=== PATIENT | male | born 1935 | race Caucasian/White ===

== ENCOUNTER 2019-08-12 17:53 | Inpatient (IN) ==
--- NOTE | 2019-08-12 18:42 | PROVIDER DOCUMENTATION ---
This chart was entered by Krysta Meadows Scribe, acting as scribe for Kevin Butts MD. HPI-Respiratory General - General Source: patient, family - History of Present Illness-Resp Quality of Pain: reports: tightness Severity in ED: reports: mild Onset/Duration: reports: 24 hours ago Timing: reports: gone now Cough Quality/Degree: reports: no cough Episode Frequency: no prior episodes Current Respiratory Medication Therapy: Initiated none Modifying Factors: improves with: exertion (worsens), lying down (worsens), oxygen (resolved chest pain, improved shortness of breath) Associated Symptoms: reports: chest pain/soreness, shortness of breath. denies: cough, fever/chills, nasal congestion, wheezing Similar Symptoms Previously?: Yes Recently seen or treated by another doctor?: Yes <Kevin Butts - Last Filed: 08/12/19 18:59> <Srinivasa Witt - Last Filed: 08/12/19 20:28> - General Chief Complaint: Shortness of Breath Stated Complaint: SOB, LOW OXYGEN LEVELS Time Seen by Provider: 08/12/19 18:14 Allergies/Adverse Reactions: Patient Allergies Allergy/AdvReac Type Severity Reaction Status Date / Time No Known Allergies Allergy Verified 02/08/18 15:42 Home Medications: Home Medication List Medication Instructions Recorded Confirmed Last Taken Type Alprazolam [Xanax] 0.25 mg PO BID 03/13/12 02/08/18 02/07/18 21:00 History 0.25 mg Gabapentin [Neurontin] 300 mg PO BID 03/13/12 02/08/18 02/07/18 21:00 History 300 mg Isosorbide Mononitrate E.r. [Imdur] 60 mg PO DAILY 03/13/12 02/08/18 02/07/18 08:00 History 60 mg Levothyroxine [Synthroid] 75 microgm PO DAILY 03/13/12 02/08/18 02/07/18 08:00 History 75 mcg ROSUVAstatin [Crestor] 10 mg PO HS 03/13/12 02/08/18 02/07/18 08:00 History 10 mg Insulin Lispro [Humalog Kwikpen 0 unit SQ AC + HS PRN PRN 01/19/16 12/30/17 05/06/17 07:00 History U-100] Glipizide E.r. [Glucotrol Xl] 5 mg PO BID 07/08/16 02/08/18 02/07/18 08:00 History 5 mg Pantoprazole [Protonix] 40 mg PO DAILY@0700 07/08/16 02/08/18 02/07/18 08:00 History 40 mg Insulin Glargine [Lantus] 15 units SQ HS 05/06/17 02/08/18 02/07/18 20:00 History 15 unts Oxycodone HCl/Acetaminophen 1 tab PO BID PRN 05/06/17 02/08/18 02/07/18 21:00 History [Percocet 10-325 mg Tablet] 1 Rivaroxaban [Xarelto] 15 mg PO DAILY 05/06/17 02/08/18 02/07/18 08:00 History 15 mg Aspirin [Ecotrin] 81 mg PO DAILY 12/30/17 02/08/18 02/07/18 08:00 History 81mg Furosemide [Lasix] 20 mg PO EVERY OTHER DAY 12/30/17 02/08/18 02/07/18 08:00 History 20 mg Metoprolol Succinate E.r. [Toprol 100 mg PO DAILY 12/30/17 02/08/18 02/07/18 08:00 History Xl] 100 mg Nitroglycerin [Nitroglycerin 1 spray SL Q5M PRN PRN 12/30/17 02/08/18 Unknown History Lingual [place]] Primidone [Mysoline] 50 mg PO DAILY 12/30/17 02/08/18 02/07/18 08:00 History 50 mg Ranitidine HCl [Zantac] 150 mg PO DAILY 12/30/17 02/08/18 02/07/18 08:00 History 150 mg Brimonidine/Timolol Ophth Soln 1 drop OPH BID 02/08/18 02/08/18 02/07/18 21:00 History [Combigan Ophth Soln] Insulin Glargine [Lantus] 25 unit SUBQ QAM 02/08/18 02/08/18 02/07/18 08:00 History 25 units Ketorolac 0.4% Ophth Soln [Acular 1 drop OP Q6H PRN 02/08/18 02/08/18 Unknown History Ls 0.4% Ophth Soln] Latanoprost 1 drop OP QHS 02/08/18 02/08/18 02/07/18 21:00 History 1 Amoxicillin/Pot Clavulanate 875 mg PO BID #10 tab 02/10/18 Unknown Rx [Augmentin] LISINOpril [Prinivil] 5 mg PO DAILY #60 tab 02/10/18 Unknown Rx Linezolid [Zyvox] 600 mg PO Q12HR #10 tab 02/10/18 Unknown Rx Polyethylene Glycol 3350 [Miralax] 17 gm PO DAILY PRN #30 powd.pack 02/10/18 Unknown Rx Ubidecarenone [Coenzyme Q10] 200 mg PO DAILY capsule 02/10/18 Unknown Rx Amiodarone [Cordarone] 200 mg PO BID 08/12/19 08/12/19 08/12/19 17:00 History Clopidogrel [Plavix] 75 mg PO DAILY 08/12/19 08/12/19 08/12/19 17:00 History - History of Present Illness-Resp Nature of Presenting Problem: pt is a 84 yr old male presenting with 1 day complaint of shortness of breath and left chest pain, pain does not radiate, pain relieved with o2. pt admits he was admitted to 08/07/19 for CHF, pt had heart cath, angioplasty and stents replaced. pt reports he was feeling well until after returning home yesterday, pt admits he was discharged home without oxygen, oxygen applied on arrival here. pt denies any other complaints. pt is followed by Dr Oliver (Kevin Butts) Review of Systems - Adult - REVIEW OF SYSTEMS - ADULT Constitutional: denies: fever Eyes: reports: no symptoms reported Ears, Nose, Mouth & Throat: denies: ear pain, sinus problem, throat pain Cardiovascular: reports: chest pain, orthopnea. denies: palpitations, syncope Respiratory: reports: dyspnea on exertion, shortness of breath. denies: cough Gastrointestinal: denies: abdominal pain, diarrhea, nausea, vomiting Genitourinary: reports: no symptoms reported Musculoskeletal: reports: no symptoms reported Integumentary: reports: no symptoms reported Neurological: denies: dizziness/vertigo, headache/migraines, syncope Psychiatric: reports: no symptoms reported Endocrine: reports: no symptoms reported Hematologic/Lymphatic: reports: no symptoms reported Allergic/Immunologic: reports: no symptoms reported All Other Systems: Reviewed and Negative <Kevin Butts - Last Filed: 08/12/19 18:59> Past History - Adult - PAST MEDICAL HISTORY-ADULT Review of Records: reports: Old Records Reviewed, Nursing Assessment Review, Medications Reviewed, Social history reviewed & non-contributory. Major Childhood Illnesses: reports: denies history Cardiovascular: reports: HTN, [place] Respiratory: reports: denies history Gastrointestinal: reports: denies history Obstetrical/Gynecological: reports: denies history Genitourinary: reports: kidney disease, prostate cancer Musculoskeletal: reports: denies history Neurological: reports: denies history Endocrine/Immune: reports: Diabetes, thyroid disorder Other Conditions: reports: denies history - PRIOR SURGERIES/PROCEDURES Surgical/Procedure History: reports: cardiac stent, other (stomach surgery) - IMMUNIZATION STATUS Childhood Immunizations: See Nurse Assessment Flu Vaccine: See Nurse Assessment - FAMILY HISTORY Family History: reviewed, not pertinent - SOCIAL HISTORY Smoking: denies Substance Use: denies Living Situation: family <Kevin Butts - Last Filed: 08/12/19 18:59> Physical Exam-General - PHYSICAL EXAM-ADULT Initial Vital Signs Reviewed: Yes - CONSTITUTIONAL General Appearance: alert, no apparent distress - EYES Eyes: PERRL/EOMI - HEAD, EARS, NOSE, MOUTH & THROAT HENMT: normocephalic/atraumatic, moist mucous membranes - NECK Neck: non-tender, full range of motion, supple, normal inspection - RESPIRATORY Respiratory: chest non-tender, lungs clear, normal breath sounds, no respiratory distress, no accessory muscle use - CARDIOVASCULAR Cardiovascular: normal peripheral pulses, regular rate, rhythm, no edema - GASTROINTESTINAL (ABDOMEN) Abdominal Exam: normal bowel sounds, non tender, soft - LYMPHATIC Lymphatic: no adenopathy - MUSCULOSKELETAL Back Exam: normal inspection, no CVA tenderness, no vertebral tenderness Extremity: normal range of motion, non-tender, normal gait, normal inspection - SKIN Integumentary: normal color, normal turgor, warm/dry - NEUROLOGIC Neurologic: grossly normal, no motor/sensory deficits - PSYCHIATRIC Psych/Mental Status: normal mood/affect, normal thought content, normal thought process, oriented x 3 <Kevin Butts - Last Filed: 08/12/19 18:59> - HEART Score HEART Score: History: Slightly Suspicious HEART Score: ECG: Non-Specific Repolarization Disturbance/LBBB/PM HEART Score: Age: > or = 65 Years HEART Score: Risk Factors for Atherosclerotic Disease: > or = 3 Risk Factors or History of Atherosclerotic Disease HEART Score: Troponin: 1-3x Normal Limit Total HEART Score:: 6 <Srinivasa Witt - Last Filed: 08/12/19 20:28> Progress - PLAN OF CARE/RESULTS Result Diagrams: 08/12/19 18:53 - EKG 1 Time of EKG reading by physician:: 17:57 EKG Read and Signed by:: Kevin Butts EKG Interpretation (*Must complete 3 of following elements*): Abnormal (st and t wave abnormality, consider lateral ischemia) Rate: 88 Rhythm: sinus with 1st degree av block [place]: normal [place] Interval: prolonged - CHANGE OF SHIFT REPORT (ED Provider) 1 Report Given and Care Transferred to:: [facility] Time of Transfer: 19:00 Items Pending: Labs, XRAY Results, Physician Consult/Arrival <Kevin Butts - Last Filed: 08/12/19 18:59> - PLAN OF CARE/RESULTS Result Diagrams: 08/12/19 18:53 08/12/19 18:53 - REASSESSMENT Reassessment #1 Time Reassessed: 20:02 Status: unchanged (Seen and examined by me. Case discussed with Dr. Butts at shift change. Cardiac enzymes are elevated a bit. Will call back [facility] at to disposition patient. In addition, will be certain to give ASA, NTP, IV lasix.) - XRAY 1 XRAY Study: Chest Impression: Abnormal, See EMR Report ( CHEST-1 VIEW - 08/12/2019 INDICATION: cp/ sob COMPARISON: 10/05/2018 FINDINGS: Lung volumes are critically low. There is some nonspecific, diffuse infiltrate or edema. There is an aortic valve replacement. Heart size is borderline. IMPRESSION: Critically low lung volumes. Indeterminate bilateral infiltrates or pulmonary edema. Electronically signed by Javi Gómez 08/12/2019 7:10 PM [id number] Interpreting Physician: Javi Gómez MD Dictated Date/Time: 08/12/19 190 cc: Kevin Butts MD; Ramses Hernandez MD) - CONSULTS/PCP/HOSPITALIST Notification #1 *Consult/PCP/Hospitalist*: [facility] Time Discussed: 20:04 Reason/Comments: no beds, keep here and transfer out if needed #2 Consult: Hospitalist paged at 2004 Time Discussed: 20:15 (Dr. De Souza) Consult Disposition: Will see in ED, Admit <MiryamSrinivasaClive - Last Filed: 08/12/19 20:28> - PLAN OF CARE/RESULTS Progress/Plan/Lab Results: Vital Signs - 8 hr 08/12/19 17:55 Temperature 98.9 F Pulse Rate 84 Respiratory Rate 22 Blood Pressure 145/72 O2 Sat by Pulse Oximetry 92 L Laboratory Results - last 24 hr 08/12/19 08/12/19 08/12/19 18:53 18:53 18:53 WBC 8.89 RBC 4.44 L Hgb 9.6 L Hct 33.3 L MCV 75.0 L MCH 21.6 L MCHC 28.8 L RDW Std Deviation 20.0 H Plt Count 180 MPV 10.3 Immature Gran % (Auto) 0.2 Neut % (Auto) 71.2 Lymph % (Auto) 15.1 L [place] % (Auto) 12.5 H Eos % (Auto) 0.7 Baso % (Auto) 0.3 Immature Gran # (Auto) 0.02 Neut # (Auto) 6.33 Lymph # (Auto) 1.34 [place] # (Auto) 1.11 H Eos # (Auto) 0.06 Baso # (Auto) 0.03 PT INR PTT (Actin FS) Sodium 135 L Potassium 4.2 Chloride 97 L Carbon Dioxide 26 Anion Gap 12 BUN 26 H Creatinine 1.8 H Estimated GFR/1.73 m2 36 BUN/Creatinine Ratio 14 Glucose 143 H Calculated Osmolality 277 Calcium 8.2 L Total Bilirubin 0.18 L AST 19 ALT 17 Alkaline Phosphatase 65 Troponin T High Sens Juh-[id number]-Jvjfkbwsfoj Pept 3025 H Total Protein 6.2 L Albumin 3.7 Globulin 2.5 Albumin/Globulin Ratio 1.5 08/12/19 08/12/19 18:53 18:53 WBC RBC Hgb Hct MCV MCH MCHC RDW Std Deviation Plt Count MPV Immature Gran % (Auto) Neut % (Auto) Lymph % (Auto) [place] % (Auto) Eos % (Auto) Baso % (Auto) Immature Gran # (Auto) Neut # (Auto) Lymph # (Auto) [place] # (Auto) Eos # (Auto) Baso # (Auto) PT 32.6 H INR 3.07 PTT (Actin FS) 44.4 H Sodium Potassium Chloride Carbon Dioxide Anion Gap BUN Creatinine Estimated GFR/1.73 m2 BUN/Creatinine Ratio Glucose Calculated Osmolality Calcium Total Bilirubin AST ALT Alkaline Phosphatase Troponin T High Sens 103 H* Ile-E-Cqzaoqcvjst Pept Total Protein Albumin Globulin Albumin/Globulin Ratio Orders Category Date Time Status cxr [CHEST-1 VIEW] [RAD] Stat Exams 08/12/19 18:15 Completed CBC WITH ELECTRONIC DIFF [HEME] Stat Lab 08/12/19 18:53 Completed COMPREHENSIVE METABOLIC PANEL [CHEM] Stat Lab 08/12/19 18:53 Completed PRO B-NATRIURETIC PEPTIDE Stat Lab 08/12/19 18:53 Completed PROTIME WITH INR [COAG] Stat Lab 08/12/19 18:53 Completed PTT [COAG] Stat Lab 08/12/19 18:53 Completed TROPONIN T HIGH SENSITIVITY Stat Lab 08/12/19 18:53 Completed Aspirin Med 08/12/19 19:58 Discontinued 325 mg PO NOW ONE Furosemide [Lasix] Med 08/12/19 19:58 Discontinued 40 mg IV NOW ONE Nitroglycerin Med 08/12/19 19:58 Discontinued 0.5 inch TOP NOW ONE EKG [EKG] Stat Ther 08/12/19 18:13 Ordered Departure <Kevin Butts - Last Filed: 08/12/19 18:59> - Departure Date of Disposition Decision: 08/12/19 Time of Disposition Decision: 20:06 Certified Medical Emergency: Emergent - Critical Care Note This patient required my direct & personal management of CC.: Yes Total Time (mins): 40 Critical Care Statement: This patient required my direct personal management to treat or rule out processes, the absence of which, could potentiallly result in sudden, clinically significant life or limb threatening deterioration. <Srinivasa Witt - Last Filed: 08/12/19 20:28> - Departure DIAGNOSIS: Chest pain due to CAD Acute exacerbation of CHF (congestive heart failure) Qualifiers: Heart failure type: combined systolic and diastolic Qualified Code(s): I50.43 - Acute on chronic combined systolic (congestive) and diastolic (congestive) heart failure Disposition: ADMITTED INPATIENT 09 Condition: Fair Referrals and Follow-Ups: Ramses Hernandez MD [Primary Care Provider] - Attestation - Physician/ BRENDA Attestation Patient care was provided by Advanced Practice Provider:: No The physician spent face to face time with patient:: Yes Advanced Practice Provider documentation review:: Supervising physician onsite and consulted in the evaluation and care of this patient. The physician did have a face to face encounter with the patient. <Srinivasa Witt - Last Filed: 08/12/19 20:28> This chart was documented by the indicated scribe, (Krysta Meadows, Scribe) and accurately reflects the services I performed and decisions made by me, Kevin Butts MD, as attested by the provider's signature.
[2019-08-12 19:09] LABS: BASO# 0.03 X1000 (0.0-0.2); BASO% 0.3 % (0.0-0.8); EOS# 0.06 X1000 (0.0-0.7); EOS% 0.7 % (0.0-10.0); HEMATOCRIT 33.3 % (42.0-52.0); HEMOGLOBIN 9.6 g/dL (14.0-18.0); IMM GRAN# 0.02 X1000 (0.0-0.04); IMM GRAN% 0.2 % (0.0-0.5); LYMPH# 1.34 X1000 (1.2-3.4); LYMPH% 15.1 % (20.5-51.1); MCH 21.6 PG (27-31); MCHC 28.8 g/dL (33-37); MONO# 1.11 X1000 (0.11-0.59); MONO% 12.5 % (1.7-9.3); MPV 10.3 FL (7.4-10.4); NEUT# 6.33 X1000 (1.4-6.5); NEUT% 71.2 % (42.2-75.2); PLT 180 X1000 (130-400); RBC 4.44 XMIL (4.7-6.1); WBC 8.89 X1000 (4.8-10.8)
[2019-08-12 19:12] LABS: INR 3.07; PROTIME 32.6 Seconds (11.0-16.0)
--- NOTE | 2019-08-12 19:12 | Diag Imaging Result Doc PS360 ---
CHEST-1 VIEW - 08/12/2019 INDICATION: cp/ sob COMPARISON: 10/05/2018 FINDINGS: Lung volumes are critically low. There is some nonspecific, diffuse infiltrate or edema. There is an aortic valve replacement. Heart size is borderline. IMPRESSION: Critically low lung volumes. Indeterminate bilateral infiltrates or pulmonary edema. Electronically signed by Javi Gómez 08/12/2019 7:10 PM
[2019-08-12 19:13] LABS: PTT 44.4 Seconds (22.3-41.8)
[2019-08-12 19:27] LABS: ALB/GLOB RATIO 1.5; ALBUMIN 3.7 g/dL (3.5-5.0); CALCIUM 8.2 mg/dL (8.8-10.2); CREATININE 1.8 mg/dL (0.7-1.2); POTASSIUM 4.2 mmol/L (3.5-5.1); TOTAL BILIRUBIN 0.18 mg/dL (0.20-1.00); TOTAL PROTEIN 6.2 g/dL (6.3-8.3)
[2019-08-12] MEDS ORDERED: LASIX IV ONE (19:58)
[2019-08-12] MEDS ORDERED: NITROGLYCERIN TOP ONE (19:58)
[2019-08-12] MEDS ORDERED: ASPIRIN PO ONE (19:58)
[2019-08-13] MEDS: ZYVOX 600 MG/D5W 600 MG/300 ML IVPB IV SCH ×3 (00:29→23:17)
[2019-08-13] MEDS: MAXIPIME 0.5 GM in NS 50 ML IV SCH ×3 (00:57→23:17)
[2019-08-13 01:39] LABS: CALCIUM 8.4 mg/dL (8.8-10.2); POTASSIUM 4.3 mmol/L (3.5-5.1)
[2019-08-13] MEDS ORDERED: KETOROLAC 0.4% RIGHT EYE PRN (02:14)
[2019-08-13] MEDS ORDERED: DUONEB (A & A) INH PRN (02:16)
[2019-08-13 04:00] LABS: CALCIUM 8.4 mg/dL (8.8-10.2); CREATININE 1.8 mg/dL (0.7-1.2); POTASSIUM 4.3 mmol/L (3.5-5.1)
[2019-08-13] MEDS: DUONEB (A & A) INH SCH ×7 (04:09→23:10)
[2019-08-13] MEDS: SYNTHROID PO SCH (06:08)
[2019-08-13 07:15] LABS: BASO# 0.03 X1000 (0.0-0.2); BASO% 0.4 % (0.0-0.8); EOS# 0.14 X1000 (0.0-0.7); EOS% 1.7 % (0.0-10.0); HEMATOCRIT 33.4 % (42.0-52.0); HEMOGLOBIN 9.6 g/dL (14.0-18.0); IMM GRAN# 0.02 X1000 (0.0-0.04); IMM GRAN% 0.2 % (0.0-0.5); LYMPH# 1.32 X1000 (1.2-3.4); LYMPH% 15.7 % (20.5-51.1); MCH 21.8 PG (27-31); MCHC 28.7 g/dL (33-37); MCV 75.9 FL (81-99); MONO# 0.98 X1000 (0.11-0.59); MONO% 11.7 % (1.7-9.3); MPV 11.6 FL (7.4-10.4); NEUT% 70.3 % (42.2-75.2); PLT 187 X1000 (130-400); RDW 20.4 % (11.5-14.5); WBC 8.39 X1000 (4.8-10.8)
--- NOTE | 2019-08-13 08:18 | HISTORY AND PHYSICAL ---
PRIMARY CARE PROVIDER: Dr. Ramses Hernandez. HEAVY RAIL TRAIN OPERATOR: Dr. Oliver. CHIEF COMPLAINT: Shortness of breath, low O2 saturations. HISTORY OF PRESENT ILLNESS: Mr. Stevenson is an 84-year-old gentleman with a past medical history of coronary artery disease status post recent SC. He just had 7 stents replaced and 2 angioplasties at [facility] on 08/09/2019. He has also recently been treated for pneumonia with p.o. Levaquin with a history of recurrent pneumonias, atrial fibrillation, which is a new diagnosis, severe GERD, chronic kidney disease stage 3, congestive heart failure, hypertension, hyperlipidemia, diabetes mellitus type 2, hypothyroidism, prostate cancer and aortic valve disease, status post TAVR. Reports on Monday he went to see his primary care provider. I believe he was diagnosed with pneumonia, congestive heart failure, and sent to [facility] and appears he was diagnosed with a non-STEMI and underwent stent replacements on this last Monday. Per their report, they replaced 7 stents and did 2 other angioplasties. He was released from [facility] yesterday. When he got home he had low O2 saturations down to 79% and this morning they continued to trend down to 73. They called his primary care provider, who urged him to go back to [facility]. However, the patient did not wish to go that route, so he was brought to [facility] ER where he had O2 saturations on 92% on room air. He was placed on supplemental O2. He complained of 1 episode of left-sided chest pain that was relieved with nitroglycerin and has not had a recurrence. He does have a positive troponin of 103. ProBNP of 3025. He was given a dose of IV Lasix in the ED. Chest x-ray showed poor inspiration and indeterminate bilateral infiltrates or pulmonary edema. He does have some 1+ pitting edema to his lower extremities. He will be admitted to a PVC unit after [facility] did not have any beds and will be seen by Cardiology. We will continue him on his home medications and a new 1 that was initiated of Plavix and Xarelto instead of amiodarone. He does not complain of any fever or chills. However, he does complain of a productive cough with thick green sputum that is blood-tinged. Some wheezing. PAST MEDICAL HISTORY: Per HPI. PAST SURGICAL HISTORY: Prostatectomy, multiple coronary stents with restenting x7, angioplasty x2, circumcision, EGD with dilatation, TAVR. SOCIAL HISTORY: No tobacco, alcohol or illicit drug use. FAMILY HISTORY: Reviewed, noncontributory. REVIEW OF SYSTEMS: Twelve-point review of systems completely negative except for those mentioned in HPI. ALLERGIES: No known drug allergies. MEDICATIONS: Home medications are currently being compiled. PHYSICAL EXAMINATION: VITAL SIGNS: Temperature is 98.9 degrees, heart rate 84, respirations 22, blood pressure 145/72. O2 is improved after supplemental O2. GENERAL: Mr. Stevenson is a pleasant, 84-year-old, male who is sitting up in the bed in no acute distress. He is ill-appearing. HEENT: Atraumatic, normocephalic. PERRL. NECK: Supple. Trachea midline. CARDIOVASCULAR: S1, S2 appreciated. No murmurs, gallops, or rubs noted. RESPIRATORY: Lung sounds bilaterally decreased in the bases. Did not appreciate any wheezes. ABDOMEN: Soft, nontender, nondistended. Positive bowel sounds 4 quads. LOWER EXTREMITIES: 1+ pitting edema. NEUROLOGIC: No focal deficits noted. DIAGNOSTIC DATA: Chest x-ray: Critically low lung volumes, indeterminate bilateral infiltrates or pulmonary edema. LABORATORY DATA: White count 8, hemoglobin and hematocrit 9 and 33, platelet count 180,000. Sodium 135, potassium 4.2, BUN 26, creatinine 1.8, blood glucose is 143. Troponin 103. ProBNP is 3025. ASSESSMENT AND PLAN: 1. Hypoxemia upon arrival, improved with supplemental O2. We will get Police Shift Commander involved if the patient qualifies for home O2. 2. Coronary artery disease. Recent I believe non STEMI, had 7 stents replaced at [facility] and 2 angioplasties. He is currently added on a low-dose aspirin, Plavix, and Xarelto. 3. I believe a new diagnosis of atrial fibrillation. We will continue on amiodarone and his home metoprolol. 4. Elevated troponin. Multiple eitology. Unsure if this is from his chronic kidney disease or his recent stenting and angioplasties that were done on 08/09/2019 or new NSTEMI one episode of CP relieved by nitro wsupply demand mis-match. 5. Chronic kidney disease stage 3, appears to be just a little bit above his baseline according to our past record. 6. Congestive heart failure, mild exacerbation. He was given a dose of IV Lasix. We will recheck a chest x-ray and proBNP in the a.m. I have initiated him on his home p.o. Lasix in the a.m. Strict I and Os, daily weights. 7. Gastroesophageal reflux disease. Continue proton pump inhibitor. 8. Diabetes mellitus type 2. Continue pattern blood sugars, sliding scale, home medications. 9. Probable pneumonia. The patient was sent home on Levaquin from . He does report a productive cough with greenish sputum. Given he was just in the hospital, we will cover him with broad- spectrum antibiotics, check a sputum culture. We will do blood cultures and breathing treatments, aggressive pulmonary toilet. Dictated by ALIYAH John for Rene De Souza MD I have performed a face to face diagnostic evaluation. Labs/Xrays- reviewed. Exam- Chest- rhonchi, CV- regular, Abd- soft. A/P- Hypoxemia, Elevated troponin, Pneumonia- Admit, supplemental oxygen, trend troponin, Cardiology consult., IV ABX. Dr. De Souza cc: MD Ramses Real MD James Murphy, MD MTDD
--- NOTE | 2019-08-13 08:39 | Diag Imaging Result Doc PS360 ---
EXAM: CHEST-2 VIEWS HISTORY: hypoxia TECHNIQUE: Two views COMPARISON: 08/12/2009 FINDINGS: There are small bilateral pleural effusions. Pulmonary edema is less pronounced. There are infiltrates in the right apex which appears slightly more prominent. No cardiomegaly. IMPRESSION: Mixed areas of improvement and worsening. Electronically signed by Miguel Nick 08/13/2019 8:36 AM
--- NOTE | 2019-08-13 08:39 | EKG Report ---
Test Performed on : 08/12/2019 5:57:31 PM Test Reason : SOB Blood Pressure : / mmHG Vent. Rate : 088 BPM Atrial Rate : 088 BPM P-R Int : 226 ms QRS Dur : 108 ms QT Int : 394 ms P-R-T Axes : 032 -19 140 degrees QTc Int : 476 ms Sinus rhythm. with 1st degree AV block. ST & T wave abnormality, consider lateral ischemia Prolonged QT Abnormal ECG When compared with ECG of 08-FEB-2018 09:14, TN interval has increased QRS duration has increased Unconfirmed Result
--- NOTE | 2019-08-13 08:57 | EKG Report ---
Test Performed on : 08/13/2019 08:41:51 AM Test Reason : dyspnea Blood Pressure : / mmHG Vent. Rate : 065 BPM Atrial Rate : 052 BPM P-R Int : 000 ms QRS Dur : 104 ms QT Int : 440 ms P-R-T Axes : 000 -20 162 degrees QTc Int : [address] & T wave abnormality, consider anterolateral ischemia Abnormal ECG When compared with ECG of 12-AUG-2019 17:57, (Unconfirmed) Atrial fibrillation. has replaced Sinus rhythm. Confirmed by Faisal Gonzalez MD ([id number]) on 08/13/2019 1:06:24 PM
[2019-08-13] MEDS ORDERED: ASPIRIN PO SCH (09:00)
[2019-08-13] MEDS: COMBIGAN OPHTH SOLN OPH SCH ×2 (09:08→22:34)
[2019-08-13] MEDS: COENZYME Q10 PO SCH (09:09)
[2019-08-13] MEDS: LASIX PO SCH ×2 (09:09→22:35)
[2019-08-13] MEDS: LANTUS INSULIN SUBQ SCH ×2 (09:09→22:42)
[2019-08-13] MEDS: CORDARONE PO SCH ×2 (09:09→22:35)
[2019-08-13] MEDS: XARELTO PO SCH (09:09)
[2019-08-13] MEDS: PLAVIX PO SCH (09:09)
[2019-08-13] MEDS: NEURONTIN PO SCH ×2 (09:38→22:35)
[2019-08-13] MEDS: PERCOCET-10 PO PRN (09:39)
[2019-08-13] MEDS: XANAX PO PRN ×2 (09:39→22:50)
--- NOTE | 2019-08-13 11:36 | Diag Imaging Result Doc PS360 ---
EXAM: CT THORAX W/O CONTRAST 08/13/2019 HISTORY: Dyspnea TECHNIQUE: This exam was performed using automated exposure control, adjustment of mA or kV according to patient size, and/or use of iterative reconstruction technique. COMMENT: The current study is compared with 01/21/2016. There are bilateral pleural effusions. There is extensive coronary calcification and there is a TAVR. The latter was not present on the previous study although the pleural effusions were present previously. The volume is slightly larger on the left than on the previous study. There are calcified granulomatous nodes in the subcarina and both patt as well as in the aorticopulmonary window and right paratracheal region. There is groundglass opacity present in both upper lobes particularly the right upper lobe. There is a similar opacity in the left upper lobe dependently and in the dependent portions of the left lower lobe. There are patchy groundglass opacities present in the right middle lobe. This is similar to the appearance on the previous examination although the density of the opacity in the right upper lobe is less than on the previous examination and the abnormality in the superior segment of the left lower lobe seen on the previous study is no longer present. The interstitial opacities which were present in the lung bases on the previous study have improved. There is no evidence of acute bony abnormality. IMPRESSION: Patchy pneumonia versus pulmonary edema with bilateral pleural effusions. Electronically signed by Rene Cespedes 08/13/2019 11:34 AM
[2019-08-13 14:15] LABS: ALLEN TEST NO; BE 2.7 mmoll (-3.0-3.0); BLOOD TYPE ARTERIAL; METHB 0.6 % (0.0-1.5); O2(CT) 13.2 mL/dL (15.0-23.0); O2HB 96.6 % (95.0-99.0); PCO2(98.6) 48 mmHg (35-45); PO2(98.6) 103 mmHg (60-100); SAMPLE BLOOD; THB 9.6 g/dL (11.5-17.4); pH(98.6) 7.38 (7.35-7.45)
[2019-08-13 14:16] LABS: MODALITY CANNULA
--- NOTE | 2019-08-13 15:49 | PROGRESS NOTE ---
DATE: 08/13/2019 INTERVAL HISTORY: The patient is fairly comfortable at rest but still becomes quite short of breath with minimal exertion. Still some nonproductive cough. General malaise. Remains afebrile. No acute events overnight. REVIEW OF SYSTEMS: Twelve point review of systems negative except as per interval history. LABS: WBC 8.39, hemoglobin 9.6, hematocrit 33.4, platelets 187,000. Last INR 3.0. Sodium 135, potassium 4.3, BUN 28, creatinine 1.8, glucose 143, last night 200 to 363 this morning. Troponin 122. IMAGING: Chest x-ray with continued small bilateral pleural effusion and pulmonary edema with slightly more prominent infiltrates at the right apex. CT chest with patchy pneumonia versus pulmonary edema and bilateral effusions. VITALS: T-max 98.9 degrees, pulse 82, respirations 20, blood pressure 134/70, O2 saturation 95% on 4 L by nasal cannula next. PHYSICAL EXAMINATION: General: No acute distress. Vitals: As above. Ill appearing. HEENT: Normocephalic, atraumatic. Moist mucous membranes. Cardiovascular: Normal rate, irregular rhythm. No rubs or gallops noted. Pulmonary: Diffuse rales and rhonchi, but pretty good air entry. No wheezing noted. Abdomen: Soft, nontender, nondistended. Bowel sounds positive. Extremities: Peripheral pulses intact. 1+ edema in bilateral legs. Neurologic: Cranial nerves grossly intact. Globally weak but no focal deficits. Psychiatric: Normal mood and affect. Asleep but arousable, cooperative. ASSESSMENT AND PLAN: 1. Acute on likely chronic congestive heart failure, possible pneumonia. The patient with what clinically looked like congestive heart failure exacerbation on admission. Diuresing fairly well on current dose of Lasix. We will continue. He was also placed on empiric antibiotics on admission with Zyvox and cefepime. We got a CT chest to see if we could clarify if this was entirely fluid and possibly discontinue antibiotics but it really looks like a mix of pulmonary edema and likely pneumonia as well, so we will continue empiric antibiotics and monitor closely. 2. Likely chronic kidney disease 3. The patient's previous creatinine seemed to have bounced around quite a lot, but appears to be largely in the 1.4 to 1.8 range, which is where he is currently. Monitor kidney function closely in the setting of aggressive diuresis. 3. Diabetes mellitus. Reasonable control yesterday but getting fairly elevated this morning. Patient restarted on his home Lantus this morning but still remained elevated so he has been started on some sliding scale insulin as well. Monitor glucoses. 4. Hypertension good control currently. Continue to monitor. 5. Hypothyroidism, continue Synthroid. 6. Hyperlipidemia, continue statin. 7. Atrial fibrillation. Continue home amiodarone, Toprol and Xarelto. 8. Gastroesophageal reflux disease continue proton pump inhibitor. 9. Elevated troponin, likely demand ischemia/type 2 myocardial infarction. Patient with recent stenting and angioplasty, but troponin only mildly elevated and almost flat on recheck. We will continue to trend but strongly suspect demand ischemia rather than acute cardiac pathology. 10. Chronic pain. Will restart patient's home gabapentin and oxycodone.
[2019-08-13] MEDS ORDERED: HUMALOG SUBQ SCH (16:00)
--- NOTE | 2019-08-13 17:48 | PROVIDER PROGRESS NOTE ---
Progress Note Patient has been seen and examined. A full dictation to follow.
[2019-08-13] MEDS ORDERED: ZOFRAN IV PRN (18:53)
[2019-08-13] MEDS ORDERED: HUMALOG SUBQ ONE (18:54)
[2019-08-13] MEDS: HUMALOG SUBQ SCH (22:33)
[2019-08-13] MEDS: CRESTOR PO SCH (22:34)
[2019-08-13] MEDS: TOPROL XL PO SCH (22:34)
[2019-08-13] MEDS: IMDUR PO SCH (22:35)
[2019-08-13] MEDS: XALATAN 0.005% OPH SOLN OPH SCH (22:38)
[2019-08-14] MEDS: DUONEB (A & A) INH SCH ×6 (03:45→23:25)
--- NOTE | 2019-08-14 05:49 | CARDIOLOGY CONSULTATION ---
DATE: 08/13/2019 CONSULTATION REQUESTED BY: Hospitalist service. REASON FOR CONSULTATION: Dyspnea, weakness, cough. HISTORY: Mr. Stevenson is an 84-year-old male who was recently admitted to [facility] on August 07. At that time, they did a heart catheterization that showed significant stenosis of the proximal LAD and also some stenosis of the circumflex. On August 09, they performed intervention to those vessels. They sent him home on August 11. The patient had originally presented to them because he was feeling short of breath for several days and also was having recurrent discomfort in the anterior chest for several days. Apparently, he had [facility] just before the admission to [facility], and they notified Dr.K. Hernandez, who in turn recommended to him to go to [place], where they did all this. After being discharged from [place], he noted that he was still feeling "congested in the chest." He has been having cough productive of some bloody sputum this past day or so. Yesterday he did not feel well and decided to come to this hospital. He was seen in the ER and they did x-rays that showed "critically low lung volumes" and indeterminate bilateral infiltrates or pulmonary edema. His EKG showed sinus rhythm with repolarization abnormality on lateral leads and first- degree AV block. This was noted on leads I, aVL, and V4 through V6. His PT is 32.6 with a PTT of 44.4. He had CPKs of 110 with a troponin level of 103, 122, and 112 mg/L. This is a high-sensitivity troponin. Initial proBNP level is 3025, and then subsequent proBNP has been checked at 2571 pg/mL. We have done a chest CT that shows patchy pneumonia versus pulmonary edema with bilateral pleural effusions. His C-reactive protein is high/elevated at 136.27 mg/L, and his sedimentation rate is up to 25 mm/hour. The patient still feels short of breath. He is on oxygen. He is still having some discomfort across the chest, which he says has not really changed much after the stents. It seems to get worsened by laying flat on his back. PAST MEDICAL HISTORY: Positive for coronary heart disease with several coronary interventions. The most recent one was done just 4 days ago on August 09. He has paroxysmal atrial fibrillation. He has had aortic stenosis. He had a previous TAVR procedure in 2018. He has had 3 episodes of pneumonia in the past. He has chronic kidney disease, hypertension, diabetes mellitus type 2, hyperlipidemia, and hypothyroidism. SURGICAL HISTORY: He has had a previous prostatectomy, and he has had back surgery. SOCIAL HISTORY: He is a . He has 3 grownup children. He used to own a convenience store. He chewed tobacco for many years. FAMILY HISTORY: Noncontributory. ALLERGIES: Negative. HOME MEDICATIONS: At the time of this admission, these included acetaminophen, alprazolam, amiodarone 200 twice a day, aspirin 81 mg daily, brimonidine 1 drop twice a day, vitamin D3 2000 units daily, clopidogrel 75 daily, furosemide 20 twice a day, gabapentin 300 twice a day, glipizide 5 mg twice a day, insulin Lantus 15 units at bedtime and 25 units in the morning, Lispro insulin sliding scale, isosorbide mononitrate 90 mg at bedtime, Levaquin daily, levothyroxine 100 mcg daily, nitroglycerin spray, Protonix 40 twice a day, potassium gluconate 99 mg in the morning, Premium 50 mg daily, Zantac 150 twice a day Xarelto 50 mg daily, Crestor 10 mg daily, sucralfate 10 mg twice a day, vilazodone 20 mg in the morning. ALLERGIES: To no medications that he is aware of. REVIEW OF SYSTEMS: Lately he has been very limited by shortness of breath and experiencing the aforementioned chest discomfort that has not improved after the stents. PHYSICAL EXAMINATION: Vital signs: Blood pressure is 134/70, pulse 82, temperature 97.6, respirations 18. General: Elderly, in no distress. HEENT: Unremarkable. Chest: Shows diminished breath sounds without rales. Heart: Sounds are regular, rhythmic. I do not hear a gallop or murmur. Abdomen: Nontender, soft. No masses or hepatomegaly. Extremities: Showed no edema. Pulses diminished. Neurologic: Nonfocal. Moves 4 extremities. BLOOD WORK: Sodium 135, potassium 4.3, BUN 28, creatinine 1.8. IMPRESSION: 1. Patient with increasing dyspnea with abnormal x-ray and CT scan of the chest suggestive of pneumonia. 2. Congestive heart failure, probably systolic plus diastolic. 3. Severe coronary heart disease with recent stents to the LAD. 4. Question of non ST myocardial infarction. More than likely this is just a minimal elevation of troponin from the recent intervention and the underlying severe coronary disease. 5. Patient has chronic kidney disease. 6. History of aortic stenosis, status post transcatheter aortic valve replacement in 2018. 7. Paroxysmal atrial fibrillation, currently in sinus rhythm. RECOMMENDATIONS: 1. At this time, I would suggest to put the aspirin on hold because he is very likely to bleed with the triple therapy. 2. We will cover him with antibiotics. Probably a consultation with Infectious Disease and Pulmonary would be in order. We will obtain a nasal swab for influenza. Further advice will be forthcoming. Thank you for asking us to participate in his evaluation. cc: Butch Callejas MD MTDD
[2019-08-14 06:16] LABS: ALLEN TEST YES; BE 4.9 mmoll (-3.0-3.0); BLOOD TYPE ARTERIAL; HCO3-(ACT) 28.7 mmoll (20.0-26.0); METHB 1.2 % (0.0-1.5); O2(CT) 13.5 mL/dL (15.0-23.0); O2HB 92.6 % (95.0-99.0); PO2(98.6) 66 mmHg (60-100); SAMPLE BLOOD; SAO2 95.4 % (95.0-100.0); THB 10.3 g/dL (11.5-17.4); pH(98.6) 7.37 (7.35-7.45)
[2019-08-14 06:22] LABS: MODALITY CANNULA; PCO2(98.6) 54 mmHg (35-45)
[2019-08-14] MEDS: HUMALOG SUBQ SCH ×5 (06:34→20:41)
[2019-08-14] MEDS: SYNTHROID PO SCH (06:34)
[2019-08-14 06:49] LABS: CALCIUM 8.7 mg/dL (8.8-10.2); CREATININE 1.9 mg/dL (0.7-1.2); POTASSIUM 4.7 mmol/L (3.5-5.1)
[2019-08-14 06:54] LABS: BASO# 0.02 X1000 (0.0-0.2); BASO% 0.2 % (0.0-0.8); EOS# 0.25 X1000 (0.0-0.7); EOS% 2.7 % (0.0-10.0); HEMATOCRIT 34.1 % (42.0-52.0); HEMOGLOBIN 9.9 g/dL (14.0-18.0); IMM GRAN# 0.02 X1000 (0.0-0.04); IMM GRAN% 0.2 % (0.0-0.5); LYMPH# 1.31 X1000 (1.2-3.4); MCH 21.9 PG (27-31); MCV 75.3 FL (81-99); MONO# 1.17 X1000 (0.11-0.59); MONO% 12.5 % (1.7-9.3); MPV 11.5 FL (7.4-10.4); NEUT# 6.58 X1000 (1.4-6.5); NEUT% 70.4 % (42.2-75.2); PLT 230 X1000 (130-400); RBC 4.53 XMIL (4.7-6.1); RDW 20.2 % (11.5-14.5); WBC 9.35 X1000 (4.8-10.8)
--- NOTE | 2019-08-14 07:23 | Diag Imaging Result Doc PS360 ---
EXAM: CHEST-PORTABLE 08/14/2019 HISTORY: chf, +/- pneumonia TECHNIQUE: AP portable at 0549 COMMENT: There is a opacity in the right upper lobe which appears denser than on the previous examination of 08/13/2019. The inspiration is less optimal. The left hemidiaphragm is more clearly visible in the costophrenic angle region on the left compared to the previous study. There is also less blunting of the right costophrenic angle. IMPRESSION: Improved pleural effusions. Right upper lobe pneumonia. Electronically signed by Rene Cespedes 08/14/2019 7:21 AM
--- NOTE | 2019-08-14 07:35 | PULMONOLOGY CONSULTATION ---
DATE: 08/13/2019 REQUESTING PROVIDER: JERSON Allen. REASON FOR CONSULTATION: Pneumonia, dyspnea. HISTORY OF PRESENT ILLNESS: This is an 84-year-old male with a medical history of recurrent pneumonia, peptic ulcer disease, severe gastroesophageal reflux disease, chronic kidney disease, hypertension, hyperlipidemia, diabetes mellitus type 2, coronary artery disease, hypothyroidism, prostatic cancer and aortic valve disease. He presented to the ER yesterday afternoon with acute shortness of breath and left chest pain. Initial workup in the ER revealed acute hypoxia, troponin elevation, congestive heart failure in mild exacerbation and probable pneumonia. He has been admitted to [facility] for further evaluation and management. Currently patient is lying in bed with no acute distress noted. He is asleep with nasal cannula 4 liters. The patient's daughter is at the bedside. She reports previously to this hospitalization the patient appeared lethargic and confused. He had fever, nausea, vomiting, productive cough and generalized weakness. PAST MEDICAL HISTORY: 1. Recurrent pneumonia, treated with oral Levaquin recently. 2. Atrial fibrillation, recently diagnosed. 3. Congestive heart failure. 4. Coronary artery disease status post recent myocardial infarction. The patient underwent 7 stents replaced and 2 angioplasties at [facility] on 08/09/2019. 5. Peptic ulcer disease status post gastric surgery. 6. Severe gastroesophageal reflux disease with esophageal stricture, status post dilation. 7. Chronic kidney disease. Stage III. 8. Hypertension. 9. Hyperlipidemia. 10. Diabetes mellitus type 2. 11. Hypothyroidism. 12. Prostate cancer status post prostatectomy. 13. Aortic valve disease status post TAVR. PAST SURGICAL HISTORY: 1. Esophageal dilation. 2. Prostatectomy. 3. Multiple coronary stents with 7 stents replaced and 2 angioplasties at [facility] recently. 4. Circumcision. 5. Cardiac catheterization. 6. Gastric surgery for peptic ulcer disease and hiatal hernia. 7. Back surgery. 8. TAVR. SOCIAL HISTORY: No tobacco, alcohol or illicit drug use. FAMILY HISTORY: Revealed noncontributory. REVIEW OF SYSTEMS: A 10-point review of systems was obtained from patient's daughter. Pertinent is listed within the HPI, otherwise noncontributory. ALLERGIES: No known drug allergies. PHYSICAL EXAMINATION: Vital Signs: Temperature 97.6 degrees, blood pressure 144/70, pulse 87, respiratory rate 18, oxygen saturation 95% on nasal cannula at 4. General: Lying in bed with eyes closed. Appears asleep. No acute distress noted. HEENT/neck: Atraumatic, normocephalic. Trachea midline. Mucosa pink and moist. Cardiovascular: S1 and S2 appreciated. Respiratory: Even and unlabored. Symmetrical excursion. Auscultation revealed mild inspiratory crackles bibasilarly. Gastrointestinal: Soft, nondistended. Normoactive bowel sounds in all 4 quadrants. Extremities: Trace pedal edema. No cyanosis. No clubbing. Neurologic: Asleep, but arousable. LAB DATA: White blood cell 8.39, hemoglobin 9.6, hematocrit 33.4, platelet 187. Sodium 135, potassium 4.3, chloride 96, carbon dioxide 26. BUN 28, creatinine 1.8, glucose 241, troponin T 112. C-reactive protein 136.27. ProBNP 2571. ABG: A pH 7.38, pCO2 48, PO2 103, HC03 27.0, base excess 2.7, oxyhemoglobin 96.2 on nasal cannula at 4 L. IMAGING DATA: CT thorax without contrast today revealed patchy pneumonia versus pulmonary edema with bilateral pleural effusions. ASSESSMENT: This is an 84-year-old male with a medical history of recurrent pneumonia, atrial fibrillation, congestive heart failure, coronary artery disease, peptic ulcer disease, severe gastroesophageal reflux disease, chronic kidney disease, hypertension, hyperlipidemia, diabetes mellitus type 2, hypothyroidism, prostate cancer and aortic valve disease. He has been admitted to the progressive care unit since 08/12/2019 with acute hypoxia, troponin elevation, congestive heart failure in mild exacerbation and probable pneumonia. 1. Acute respiratory failure. 2. Patchy pneumonia versus pulmonary edema with bilateral pleural effusions. 3. Congestive heart failure with mild exacerbation. 4. Coronary artery disease with recent stenting and angioplasty secondary to recent myocardial infarction. PLAN: 1. Continue supplemental oxygen as needed. 2. Continue antibiotics including cefepime. Continue bronchodilators and diuretics. 3. Follow up with ABG, BMP, CBC, sputum culture, blood culture, and chest x-ray. 4. BiPAP at bedtime and as needed. 5. Further recommendations pending hospital course. Thank you for the courtesy of this consult. Dr. Kim did the examination, evaluation and management orders. ALIYAH did the dictation only for Dr. Kim, according to his direction. Examination time 38 minutes Dictated by ALIYAH Robbins for Lanre Kim MD cc: ALIYAH Robbins MD [facility]
--- NOTE | 2019-08-14 08:10 | EKG Report ---
Test Performed on : 08/14/2019 06:18:29 AM Test Reason : dyspnea Blood Pressure : / mmHG Vent. Rate : 071 BPM Atrial Rate : 071 BPM P-R Int : 214 ms QRS Dur : 108 ms QT Int : 444 ms P-R-T Axes : 029 -13 158 degrees QTc Int : 482 ms Sinus rhythm. with 1st degree AV block. Incomplete left bundle branch block ST & T wave abnormality, consider anterolateral ischemia Prolonged QT Abnormal ECG When compared with ECG of 13-AUG-2019 08:41, Sinus rhythm. has replaced Atrial fibrillation. Confirmed by Carlos MONTENEGRO, M. Jose ([id number]) on 08/14/2019 8:32:28 AM
--- NOTE | 2019-08-14 08:35 | CARDIOLOGY PROGRESS NOTE ---
DATE: 08/14/2019 CHIEF COMPLAINT: Shortness of breath. SUBJECTIVE: Mr. Stevenson is feeling better today. He has not had any fever. His cough is minimal. There is no hemoptysis. Vital signs are stable. OBJECTIVE: His pulse rate is 75 beats per minute, respirations 16 per minute, temperature 97.7, blood pressure 118/57. General: The patient is awake, alert, in no distress. HEENT: Unremarkable. Chest: Shows diffusely diminished breath sounds without any obvious rales. Heart: Sounds are regular and rhythmic. I do not hear any gallop or murmur. Abdomen: Obese, nontender. Extremities: Showed no edema. Neurologic exam: Follows commands, moves all 4 extremities. BLOOD WORK: Today on 4 L nasal cannula, pH 7.37, pCO2 54, pO2 66. Sodium 135, potassium 4.7, BUN 28, creatinine 1.9. Troponin is 113, however, CPK remains low. Electrocardiogram from this morning shows sinus rhythm with diffuse repolarization abnormality. IMPRESSION: 1. Patient who presented with dyspnea, more than likely pneumonia based on high levels of inflammatory markers and the appearance of the CT scan of the chest. 2. Coronary heart disease, severe, recent stent to left anterior descending and also intervention to the circumflex on 08/09/2019. 3. Chronic kidney disease. 4. Elevation of troponin level, question of a tiny [id number] myocardial infarction. 5. Congestive heart failure probably combination of diastolic and some systolic heart failure. 6. History of aortic stenosis status post transcatheter aortic valve replacement in 2018. 7. History of paroxysmal atrial fibrillation. RECOMMENDATIONS: At this time, I will let the Primary service handle the pneumonia. Cardiac- denis, I do not have any additional suggestions. The patient is to stay on clopidogrel and rivaroxaban. Aspirin may be stopped because increased risk of bleeding. No other specific recommendation is given. As far as the other medical interventions like amiodarone, that needs to be continued per instructions given by the [place] physicians and it may need to be adjusted by them upon discharge. As a general rule, amiodarone may be decreased to 200 mg once a day after 2 weeks of loading particularly if he is maintaining sinus rhythm. Please call me if you have any questions or concerns. cc: Butch Callejas MD
[2019-08-14] MEDS: XANAX PO PRN ×2 (08:47→22:32)
[2019-08-14] MEDS: CORDARONE PO SCH ×2 (08:47→20:40)
[2019-08-14] MEDS: PERCOCET-10 PO PRN ×2 (08:47→22:32)
[2019-08-14] MEDS: PLAVIX PO SCH (08:47)
[2019-08-14] MEDS: LASIX PO SCH ×2 (08:47→20:40)
[2019-08-14] MEDS: NEURONTIN PO SCH ×2 (08:48→20:40)
[2019-08-14] MEDS: COENZYME Q10 PO SCH (08:48)
[2019-08-14] MEDS: COMBIGAN OPHTH SOLN OPH SCH ×2 (08:48→20:42)
[2019-08-14] MEDS: XARELTO PO SCH (08:48)
[2019-08-14] MEDS: LANTUS INSULIN SUBQ SCH ×2 (08:49→20:41)
[2019-08-14] MEDS: MAXIPIME 0.5 GM in NS 50 ML IV SCH (12:16)
[2019-08-14] MEDS: ZYVOX 600 MG/D5W 600 MG/300 ML IVPB IV SCH (12:16)
--- NOTE | 2019-08-14 18:44 | PROVIDER PROGRESS NOTE ---
Progress Note Dr. Kim Progress Note/Pulmonary and or critical care Subjective: Patient is sitting on the bedside chair. He is on NC 2L and tolerates well. He wore BiPAP last night for a short period of time. He apparently has been getting up and moving around. He reports he walked in the hallway this morning during physical therapy. Patients son is at the bedside. Input is appreciated from Dr. Ross and other teams on the case. Objective: Vital Signs: T 97.7 (no fever in last 24 hours), TN 78, RR 14, BP 118/57 and SaO2 96% on NC 2L. Physical Examination: General: Sitting on the bedside chair with no acute distress noted. HEENT: Normocephalic. Trachea midline. Mucosa pink and moist. Respiratory: Symmetrical excursion. Auscultation reveals inspiratory crackles bilaterally. CVS: Regular rate and rhythm with S1 and S2 appreciated. Abdomen: Soft. Non-tender. Non-distended. Normoactive bowel sounds in all 4 quadrants. Extremities: Trace pedal edema. No cyanosis. No clubbing. Dorsalis pedis 2+ bilaterally. Neuro: A/O x3. Speech fluent. Follow commands. Labs and Radiology: Laboratory Results 08/13/19 08/13/19 08/13/19 18:47 18:54 21:07 WBC RBC Hgb Hct MCV MCH MCHC RDW Std Deviation Plt Count MPV Immature Gran % (Auto) Neut % (Auto) Lymph % (Auto) [place] % (Auto) Eos % (Auto) Baso % (Auto) Immature Gran # (Auto) Neut # (Auto) Lymph # (Auto) [place] # (Auto) Eos # (Auto) Baso # (Auto) Specimen Type Sample Site pH pCO2 pO2 HCO3 Base Excess Oxyhemoglobin ABG O2 Sat (Calculated) ABG O2 Saturation ABG Carboxyhemoglobin ABG Methemoglobin Yariel Test A-a O2 Difference Total Hemoglobin Lactate Liter Flow Blood Gas Modality FiO2 % Sodium Potassium Chloride Carbon Dioxide Anion Gap BUN Creatinine Estimated GFR/1.73 m2 BUN/Creatinine Ratio Glucose POC Glucose 424 H 452 H 242 H Calculated Osmolality Calcium Creatine Kinase Troponin T High Sens 08/14/19 08/14/19 08/14/19 06:00 06:00 06:00 WBC 9.35 RBC 4.53 L Hgb 9.9 L Hct 34.1 L MCV 75.3 L MCH 21.9 L MCHC 29.0 L RDW Std Deviation 20.2 H Plt Count 230 MPV 11.5 H Immature Gran % (Auto) 0.2 Neut % (Auto) 70.4 Lymph % (Auto) 14.0 L [place] % (Auto) 12.5 H Eos % (Auto) 2.7 Baso % (Auto) 0.2 Immature Gran # (Auto) 0.02 Neut # (Auto) 6.58 H Lymph # (Auto) 1.31 [place] # (Auto) 1.17 H Eos # (Auto) 0.25 Baso # (Auto) 0.02 Specimen Type Sample Site pH pCO2 pO2 HCO3 Base Excess Oxyhemoglobin ABG O2 Sat (Calculated) ABG O2 Saturation ABG Carboxyhemoglobin ABG Methemoglobin Yariel Test A-a O2 Difference Total Hemoglobin Lactate Liter Flow Blood Gas Modality FiO2 % Sodium 135 L Potassium 4.7 Chloride 94 L Carbon Dioxide 31 Anion Gap 10 BUN 28 H Creatinine 1.9 H Estimated GFR/1.73 m2 34 BUN/Creatinine Ratio 15 Glucose 110 H D POC Glucose Calculated Osmolality 276 Calcium 8.7 L Creatine Kinase Troponin T High Sens 113 H* 08/14/19 08/14/19 08/14/19 06:00 06:03 06:05 WBC RBC Hgb Hct MCV MCH MCHC RDW Std Deviation Plt Count MPV Immature Gran % (Auto) Neut % (Auto) Lymph % (Auto) [place] % (Auto) Eos % (Auto) Baso % (Auto) Immature Gran # (Auto) Neut # (Auto) Lymph # (Auto) [place] # (Auto) Eos # (Auto) Baso # (Auto) Specimen Type ARTERIAL Sample Site R RADIAL pH 7.37 pCO2 54 H* pO2 66 HCO3 28.7 H Base Excess 4.9 H Oxyhemoglobin 92.6 L ABG O2 Sat (Calculated) 13.5 L ABG O2 Saturation 95.4 ABG Carboxyhemoglobin 1.80 ABG Methemoglobin 1.2 Yariel Test YES A-a O2 Difference 123.0 Total Hemoglobin 10.3 L Lactate 1.30 Liter Flow 4.0 Blood Gas Modality CANNULA FiO2 % 36.0 Sodium Potassium Chloride Carbon Dioxide Anion Gap BUN Creatinine Estimated GFR/1.73 m2 BUN/Creatinine Ratio Glucose POC Glucose 112 H D Calculated Osmolality Calcium Creatine Kinase 79 Troponin T High Sens 08/14/19 08/14/19 10:11 15:49 WBC RBC Hgb Hct MCV MCH MCHC RDW Std Deviation Plt Count MPV Immature Gran % (Auto) Neut % (Auto) Lymph % (Auto) [place] % (Auto) Eos % (Auto) Baso % (Auto) Immature Gran # (Auto) Neut # (Auto) Lymph # (Auto) [place] # (Auto) Eos # (Auto) Baso # (Auto) Specimen Type Sample Site pH pCO2 pO2 HCO3 Base Excess Oxyhemoglobin ABG O2 Sat (Calculated) ABG O2 Saturation ABG Carboxyhemoglobin ABG Methemoglobin Yariel Test A-a O2 Difference Total Hemoglobin Lactate Liter Flow Blood Gas Modality FiO2 % Sodium Potassium Chloride Carbon Dioxide Anion Gap BUN Creatinine Estimated GFR/1.73 m2 BUN/Creatinine Ratio Glucose POC Glucose 294 H D 389 H Calculated Osmolality Calcium Creatine Kinase Troponin T High Sens Assessment: Acute respiratory failure. Patchy pneumonia vs. pulmonary edema with bilateral pleural effusions. Acute on likely chronic CHF. Elevated troponin. Still elevated. Coronary artery disease with recent ID, stenting and angioplasty at [facility]. Prognosis is guarded. Plan: Continue current treatment and supportive care per admitting and other teams on the case. Antibiotic (Cefepime and Linezolid). Supplemental oxygen with BiPAP qhs and prn. Titrate supplemental oxygen to patients needs per clinical protocols with closely monitoring. Bronchodilators. Diuresis. Appropriate GI and DVT prophylaxis. We instruct patient, his family and nursing staff that ambulation is not recommended at this time till the wing coverer, Dr. Mahajan clears him. Evaluation time in minutes: 35 minutes.
--- NOTE | 2019-08-14 18:46 | PROGRESS NOTE ---
DATE: 08/14/2019 SUBJECTIVE: I have seen and examined Mr. Stevenson today. Mr. Stevenson refers to be doing well. He was sitting on the chair, having his lunch when I saw him. The daughter was at the bedside at the time of the encounter. OBJECTIVE: Vital signs: Blood pressure is 147/83, pulse of 73, respirations 15, temperature 97.9 degrees. On general exam Mr. Stevenson is an 84-year-old gentleman. He was sitting in the chair. He was not in any distress. Mucosa is pink and moist. Anicteric. Acyanotic. Neck is supple. Chest: Good air entry bilaterally. A few distant crackles in the posterior lung iraheta. Cardiovascular: Regular rate and rhythm. No murmurs. GI: Abdomen was soft. Extremities: No pedal edema. SPA ASSISTANT MANAGER: The patient was awake, alert and oriented. LABORATORY DATA: WBC 9.35, hemoglobin is 9.9, platelet count of 230,000. Chemistry is also reviewed. Creatinine was 1.9. The patient's troponin is 113 today. DIAGNOSTIC DATA: A chest x-ray this morning continues to show pleural effusion, right upper lobe pneumonia. ASSESSMENT AND PLAN: 1. Acute hypoxemic respiratory failure. This is being corrected with supplemental oxygen and the treatment of underlying disease. We think it is a combination of pneumonia and pleural effusion. 2. Multifocal pneumonia. The patient is on cefepime with Zyvox. Today is day 1 on the antimicrobial therapy. 3. Diabetes mellitus. 4. History of atrial fibrillation. The patient is on amiodarone, metoprolol and Xarelto for stroke prophylaxis. 5. Elevated troponin, presumably due to [id number]-ucoztnrei myocardial infarction. Cardiology is on board. 6. Chronic kidney disease stage 3A-B. 7. Microcytic anemia. We will check the patient's iron studies and replace accordingly. 8. Coronary artery disease, status post stent in the left anterior descending artery and the circumflex. cc: Hay Thomas MD
[2019-08-14] MEDS: IMDUR PO SCH (20:40)
[2019-08-14] MEDS: CRESTOR PO SCH (20:40)
[2019-08-14] MEDS: TOPROL XL PO SCH (20:40)
[2019-08-14] MEDS: XALATAN 0.005% OPH SOLN OPH SCH (20:42)
[2019-08-14] MEDS ORDERED: DULCOLAX PR ONE (20:53)
[2019-08-15] MEDS: MAXIPIME 0.5 GM in NS 50 ML IV SCH ×2 (00:01→14:03)
[2019-08-15] MEDS: ZYVOX 600 MG/D5W 600 MG/300 ML IVPB IV SCH ×2 (00:02→14:03)
[2019-08-15] MEDS: DUONEB (A & A) INH SCH ×6 (03:25→23:30)
[2019-08-15 04:39] LABS: ALLEN TEST YES; BE 5.2 mmoll (-3.0-3.0); BLOOD TYPE ARTERIAL; METHB 0.9 % (0.0-1.5); O2(CT) 11.1 mL/dL (15.0-23.0); PO2(98.6) 90 mmHg (60-100); SAMPLE BLOOD; SAO2 98.5 % (95.0-100.0); THB 8.1 g/dL (11.5-17.4); pH(98.6) 7.39 (7.35-7.45)
[2019-08-15 05:07] LABS: MODALITY BI PAP; PCO2(98.6) 51 mmHg (35-45)
[2019-08-15] MEDS: SYNTHROID PO SCH (06:24)
[2019-08-15] MEDS: HUMALOG SUBQ SCH ×4 (06:25→21:24)
--- NOTE | 2019-08-15 06:35 | Diag Imaging Result Doc PS360 ---
CHEST-1 VIEW - 08/15/2019 INDICATION: SOB COMPARISON: 08/14/2019 FINDINGS: Stable severely low lung volumes. Stable cardiomegaly and pulmonary vascular congestion. Stable hazy infiltrate worst at the right upper lobe. No significant pleural effusion. IMPRESSION: No change from prior. Electronically signed by Javi Gómez 08/15/2019 6:33 AM
--- NOTE | 2019-08-15 07:12 | EKG Report ---
Test Performed on : 08/15/2019 06:41:47 AM Test Reason : dyspnea Blood Pressure : / mmHG Vent. Rate : 072 BPM Atrial Rate : 072 BPM P-R Int : 222 ms QRS Dur : 114 ms QT Int : 434 ms P-R-T Axes : 031 -23 121 degrees QTc Int : 475 ms Sinus rhythm. with 1st degree AV block. ST & T wave abnormality, consider lateral ischemia Prolonged QT Abnormal ECG When compared with ECG of 14-AUG-2019 06:18, No significant change was found Confirmed by Faisal Gonzalez MD ([id number]) on 08/16/2019 12:16:11 PM
[2019-08-15 07:17] LABS: BASO# 0.02 X1000 (0.0-0.2); BASO% 0.3 % (0.0-0.8); EOS# 0.21 X1000 (0.0-0.7); EOS% 2.9 % (0.0-10.0); HEMATOCRIT 35.4 % (42.0-52.0); HEMOGLOBIN 10.1 g/dL (14.0-18.0); IMM GRAN# 0.02 X1000 (0.0-0.04); IMM GRAN% 0.3 % (0.0-0.5); LYMPH# 1.43 X1000 (1.2-3.4); LYMPH% 19.9 % (20.5-51.1); MCH 21.4 PG (27-31); MCHC 28.5 g/dL (33-37); MONO# 0.78 X1000 (0.11-0.59); MONO% 10.8 % (1.7-9.3); MPV 10.9 FL (7.4-10.4); NEUT# 4.73 X1000 (1.4-6.5); NEUT% 65.8 % (42.2-75.2); PLT 222 X1000 (130-400); RBC 4.72 XMIL (4.7-6.1); WBC 7.19 X1000 (4.8-10.8)
[2019-08-15 07:38] LABS: CALCIUM 8.8 mg/dL (8.8-10.2); POTASSIUM 4.6 mmol/L (3.5-5.1)
[2019-08-15 07:55] LABS: LYMPHS 20 % (21-51); MONO 10 % (1-9); SEGS 70 % (42-75)
[2019-08-15 07:58] LABS: IRON SATURATION 8 %; TIBC 290 ug/dL; TOTAL IRON 22 ug/dL (53-167); UNBOUND IRON 268 ug/dL (112-346)
[2019-08-15 08:44] LABS: FERRITIN 51 ng/mL (30-400)
[2019-08-15] MEDS ORDERED: LASIX PO SCH (09:00)
[2019-08-15] MEDS: PLAVIX PO SCH (09:01)
[2019-08-15] MEDS: XARELTO PO SCH (09:01)
[2019-08-15] MEDS: LANTUS INSULIN SUBQ SCH ×2 (09:01→21:20)
[2019-08-15] MEDS: NEURONTIN PO SCH ×2 (09:01→21:23)
[2019-08-15] MEDS: COENZYME Q10 PO SCH (09:02)
[2019-08-15] MEDS: XANAX PO PRN (09:02)
[2019-08-15] MEDS: PERCOCET-10 PO PRN ×2 (09:02→21:21)
[2019-08-15] MEDS: CORDARONE PO SCH ×2 (09:02→21:19)
[2019-08-15] MEDS: COMBIGAN OPHTH SOLN OPH SCH ×2 (09:03→21:22)
[2019-08-15] MEDS: MIRALAX PO SCH (09:04)
--- NOTE | 2019-08-15 09:50 | PROVIDER PROGRESS NOTE ---
Progress Note Additional Pulmonary note: Pleural effusion is small and not subject to thoracentesis. Bilateral and more likely related to volume overload.
[2019-08-15] MEDS: VENOFER 200 MG in NS 100 ML IV SCH (17:32)
--- NOTE | 2019-08-15 19:25 | PROGRESS NOTE ---
DATE: 08/15/2019 SUBJECTIVE: I have seen and examined Mr. Stevenson today. Mr. Stevenson's [id number] was at the bedside at the time of the encounter. Mr. Stevenson refers to be breathing a lot better. OBJECTIVE: Vital signs: Blood pressure is 155/70, pulse of 82, respirations 22, temperature 98.0 degrees. The patient was saturating 100% on nasal cannula. General: Mr. Stevenson is an 84-year- old, elderly, gentleman. He is in bed, in mild respiratory distress. HEENT: Mucosa is pink and moist. Anicteric. Acyanotic. Neck: Supple. Chest: Good air entry bilateral. There are distant crackles in the posterior lung iraheta. Cardiovascular: Regular rate and rhythm. No murmurs, no rubs, no gallops. GI: Abdomen was soft, nontender. Bowel sounds present. Extremities: No pedal edema. EYE TECHNICIAN: Patient is awake, alert, and oriented. There is no focal deficit. LABORATORY DATA: Hemoglobin is 10.1, MCV 75.0, platelet count of 222,000. ABG pCO2 is 51, PO2 is 90. Sodium is 131, potassium is 4.4, chloride 90, bicarb is 32, creatinine is 3.0. Iron studies show remarkable iron deficiency. ASSESSMENT: 1. Acute hypoxemic respiratory failure. Patient continues to be on supplemental oxygen. 2. Multifocal pneumonia, presumably hospital acquired. The patient is on cefepime with Zyvox, today is day 2. He seems to be progressively getting better. 3. Diabetes mellitus. We will continue insulin regimen. 4. History of atrial fibrillation. The patient is on amiodarone, metoprolol. Xarelto for stroke prophylaxis. 5. Elevated troponins, presumably demand mismatch versus non-ST elevation myocardial infarction. Cardiology is on board. 6. Chronic kidney disease, stage 3B. Creatinine continues to be gradually creeping up. I have discontinued his Lasix since he looks euvolemic. 7. Microcytic anemia secondary to iron deficiency. Patient is getting Venofer infusion. 8. Coronary artery disease. Patient is status post stents in left anterior descending and circumflex on August 09, 2019, in [place]. The patient is currently asymptomatic and he is being followed up by Cardiology. PLAN: So, in general, I think Mr. Stevenson is progressively doing well. He was just recently discharged from [facility] after he underwent PCI in the circumflex and LAD. Subsequently, he started developing some shortness of breath, which on presentation he was found to have pneumonia and some pulmonary congestion. The pulmonary edema seems to have remarkably improved. Lasix has been down titrated to just p.o. and just 1 daily. We will continue with the antibiotics for the pneumonia. I suspect Mr. Stevenson is going to be in the hospital probably throughout the weekend to ensure the pneumonia is well treated before he is discharged. Mr. Stevenson is also getting iron infusion. cc: Hay Thomas MD
--- NOTE | 2019-08-15 19:26 | PROVIDER PROGRESS NOTE ---
Progress Note Dr. Kim Progress Note/Pulmonary and or critical care Subjective: Patient is sitting on the bedside chair. He is on NC 2L and tolerates well. He has been cleared by the special agent for physical therapy and ambulation, for which he is very happy with. During my encounter, he mentions that he is ready for another walk, but at the end of my encounter, he states he is tired and would like to get back to the bed and take a nap. He does have some productive cough with chest congestion, but no chest pain. Patients daughter is at the bedside. Input is appreciated from Dr. Thomas and other teams on the case. Objective: Vital Signs: T 98.2 (no fever in last 24 hours), NY 73, RR 17, BP 145/78 and SaO2 96% on NC 2L. Physical Examination: General: Sitting on the bedside chair with no acute distress noted. HEENT: Normocephalic. Trachea midline. Mucosa pink and moist. Respiratory: Even and unlabored. Symmetrical excursion. Auscultation reveals mild inspiratory crackles RLL. CVS: Regular rate and rhythm with S1 and S2 appreciated. Abdomen: Soft. Non-tender. Non-distended. Normoactive bowel sounds in all 4 quadrants. Extremities: No pedal edema. No cyanosis. No clubbing. Dorsalis pedis 2+ bilaterally. Neuro: A/O x3. Speech fluent. Follow commands. Weakness present. Labs and Radiology: Laboratory Results 08/14/19 08/14/19 08/15/19 18:43 20:17 04:28 WBC RBC Hgb Hct MCV MCH MCHC RDW Std Deviation Plt Count MPV Immature Gran % (Auto) Neut % (Auto) Lymph % (Auto) Graham % (Auto) Eos % (Auto) Baso % (Auto) Immature Gran # (Auto) Neut # (Auto) Lymph # (Auto) Graham # (Auto) Eos # (Auto) Baso # (Auto) Segmented Neutrophils Lymphocytes Monocytes Specimen Type ARTERIAL Sample Site R RADIAL pH 7.39 pCO2 51 H* pO2 90 HCO3 29.0 H Base Excess 5.2 H Oxyhemoglobin 96.0 ABG O2 Sat (Calculated) 11.1 L ABG O2 Saturation 98.5 ABG Carboxyhemoglobin 1.60 ABG Methemoglobin 0.9 Yariel Test YES A-a O2 Difference 96.0 Total Hemoglobin 8.1 L Lactate 1.70 Blood Gas Modality BI PAP Vent Mode BIPAP FiO2 % 35.0 Inspiratory BiPAP 10.0 Expiratory BiPAP 5.0 Sodium Potassium Chloride Carbon Dioxide Anion Gap BUN Creatinine Estimated GFR/1.73 m2 BUN/Creatinine Ratio Glucose POC Glucose 233 H 200 H Calculated Osmolality Calcium Iron TIBC % Saturation Unsat Iron Binding Ferritin Vitamin B12 Folate 08/15/19 08/15/19 08/15/19 05:57 06:00 06:00 WBC 7.19 RBC 4.72 Hgb 10.1 L Hct 35.4 L MCV 75.0 L MCH 21.4 L MCHC 28.5 L RDW Std Deviation 20.0 H Plt Count 222 MPV 10.9 H Immature Gran % (Auto) 0.3 Neut % (Auto) 65.8 Lymph % (Auto) 19.9 L Graham % (Auto) 10.8 H Eos % (Auto) 2.9 Baso % (Auto) 0.3 Immature Gran # (Auto) 0.02 Neut # (Auto) 4.73 Lymph # (Auto) 1.43 Graham # (Auto) 0.78 H Eos # (Auto) 0.21 Baso # (Auto) 0.02 Segmented Neutrophils 70 Lymphocytes 20 L Monocytes 10 H Specimen Type Sample Site pH pCO2 pO2 HCO3 Base Excess Oxyhemoglobin ABG O2 Sat (Calculated) ABG O2 Saturation ABG Carboxyhemoglobin ABG Methemoglobin Yariel Test A-a O2 Difference Total Hemoglobin Lactate Blood Gas Modality Vent Mode FiO2 % Inspiratory BiPAP Expiratory BiPAP Sodium 131 L Potassium 4.6 Chloride 90 L Carbon Dioxide 32 Anion Gap 9 BUN 30 H Creatinine 2.0 H Estimated GFR/1.73 m2 32 BUN/Creatinine Ratio 15 Glucose 213 H D POC Glucose 205 H Calculated Osmolality 275 Calcium 8.8 Iron TIBC % Saturation Unsat Iron Binding Ferritin Vitamin B12 Folate 08/15/19 08/15/19 08/15/19 06:00 06:00 06:00 WBC RBC Hgb Hct MCV MCH MCHC RDW Std Deviation Plt Count MPV Immature Gran % (Auto) Neut % (Auto) Lymph % (Auto) Graham % (Auto) Eos % (Auto) Baso % (Auto) Immature Gran # (Auto) Neut # (Auto) Lymph # (Auto) Graham # (Auto) Eos # (Auto) Baso # (Auto) Segmented Neutrophils Lymphocytes Monocytes Specimen Type Sample Site pH pCO2 pO2 HCO3 Base Excess Oxyhemoglobin ABG O2 Sat (Calculated) ABG O2 Saturation ABG Carboxyhemoglobin ABG Methemoglobin Yariel Test A-a O2 Difference Total Hemoglobin Lactate Blood Gas Modality Vent Mode FiO2 % Inspiratory BiPAP Expiratory BiPAP Sodium Potassium Chloride Carbon Dioxide Anion Gap BUN Creatinine Estimated GFR/1.73 m2 BUN/Creatinine Ratio Glucose POC Glucose Calculated Osmolality Calcium Iron 22 L TIBC 290 % Saturation 8 Unsat Iron Binding 268 Ferritin 51 Vitamin B12 1538 H Folate 17.4 08/15/19 08/15/19 08/15/19 10:38 15:53 17:42 WBC RBC Hgb Hct MCV MCH MCHC RDW Std Deviation Plt Count MPV Immature Gran % (Auto) Neut % (Auto) Lymph % (Auto) Graham % (Auto) Eos % (Auto) Baso % (Auto) Immature Gran # (Auto) Neut # (Auto) Lymph # (Auto) Graham # (Auto) Eos # (Auto) Baso # (Auto) Segmented Neutrophils Lymphocytes Monocytes Specimen Type Sample Site pH pCO2 pO2 HCO3 Base Excess Oxyhemoglobin ABG O2 Sat (Calculated) ABG O2 Saturation ABG Carboxyhemoglobin ABG Methemoglobin Yariel Test A-a O2 Difference Total Hemoglobin Lactate Blood Gas Modality Vent Mode FiO2 % Inspiratory BiPAP Expiratory BiPAP Sodium Potassium Chloride Carbon Dioxide Anion Gap BUN Creatinine Estimated GFR/1.73 m2 BUN/Creatinine Ratio Glucose POC Glucose 126 H 405 H D 355 H Calculated Osmolality Calcium Iron TIBC % Saturation Unsat Iron Binding Ferritin Vitamin B12 Folate Assessment: Acute respiratory failure. Patchy pneumonia vs. pulmonary edema with bilateral pleural effusions. CXR today shows stable severely low lung volumes, stable cardiomegaly, pulmonary vascular congestion and stable hazy infiltrate worst at the RUL. Acute on likely chronic CHF. Elevated troponin. Still elevated. Coronary artery disease with recent HI, stenting and angioplasty at [facility]. Prognosis is guarded. Plan: Continue current treatment and supportive care per admitting and other teams on the case. Antibiotic (Cefepime and Linezolid). Supplemental oxygen with BiPAP qhs and prn. Titrate supplemental oxygen to patients needs per clinical protocols with closely monitoring. Bronchodilators. Diuresis. Start Mucomyst. Appropriate GI and DVT prophylaxis. Evaluation time in minutes: 33 minutes.
[2019-08-15] MEDS: MUCOMYST 20% INH SCH (19:53)
[2019-08-15] MEDS: CRESTOR PO SCH (21:19)
[2019-08-15] MEDS: TOPROL XL PO SCH (21:19)
[2019-08-15] MEDS: PERICOLACE PO SCH (21:20)
[2019-08-15] MEDS: IMDUR PO SCH (21:20)
[2019-08-15] MEDS: XALATAN 0.005% OPH SOLN OPH SCH (21:22)
[2019-08-16] MEDS: MAXIPIME 0.5 GM in NS 50 ML IV SCH ×3 (00:22→23:15)
[2019-08-16] MEDS: ZYVOX 600 MG/D5W 600 MG/300 ML IVPB IV SCH ×3 (00:23→23:15)
[2019-08-16] MEDS: DUONEB (A & A) INH SCH ×6 (03:20→23:25)
[2019-08-16 05:49] LABS: ALLEN TEST YES; BE 5.5 mmoll (-3.0-3.0); BLOOD TYPE ARTERIAL; HCO3-(ACT) 29.2 mmoll (20.0-26.0); METHB 0.9 % (0.0-1.5); O2(CT) 13.3 mL/dL (15.0-23.0); O2HB 94.9 % (95.0-99.0); PO2(98.6) 82 mmHg (60-100); SAMPLE BLOOD; SAO2 97.5 % (95.0-100.0); THB 9.9 g/dL (11.5-17.4); pH(98.6) 7.37 (7.35-7.45)
[2019-08-16 05:51] LABS: MODALITY BI PAP; PCO2(98.6) 55 mmHg (35-45)
[2019-08-16] MEDS: HUMALOG SUBQ SCH ×4 (06:21→21:34)
[2019-08-16] MEDS: SYNTHROID PO SCH (06:28)
[2019-08-16 07:19] LABS: BASO# 0.04 X1000 (0.0-0.2); BASO% 0.5 % (0.0-0.8); EOS# 0.26 X1000 (0.0-0.7); EOS% 3.5 % (0.0-10.0); HEMATOCRIT 36.2 % (42.0-52.0); HEMOGLOBIN 10.5 g/dL (14.0-18.0); IMM GRAN# 0.02 X1000 (0.0-0.04); IMM GRAN% 0.3 % (0.0-0.5); LYMPH# 1.61 X1000 (1.2-3.4); LYMPH% 21.8 % (20.5-51.1); MCH 21.7 PG (27-31); MCV 74.8 FL (81-99); MONO# 0.81 X1000 (0.11-0.59); MONO% 10.9 % (1.7-9.3); MPV 10.7 FL (7.4-10.4); NEUT# 4.66 X1000 (1.4-6.5); PLT 262 X1000 (130-400); RBC 4.84 XMIL (4.7-6.1); RDW 20.2 % (11.5-14.5)
[2019-08-16 07:20] LABS: CALCIUM 8.8 mg/dL (8.8-10.2); CREATININE 1.7 mg/dL (0.7-1.2); POTASSIUM 4.9 mmol/L (3.5-5.1)
--- NOTE | 2019-08-16 07:56 | Diag Imaging Result Doc PS360 ---
CHEST-1 VIEW - 08/16/2019 INDICATION: SOB COMPARISON: 08/15/2019 FINDINGS: Stable low lung volumes. Stable hazy infiltrate at the left lower lobe and right upper lobe. Heart size remains slightly enlarged. Stable pulmonary vascular congestion. IMPRESSION: No change from prior. Electronically signed by Javi Gómez 08/16/2019 7:53 AM
[2019-08-16] MEDS: MIRALAX PO SCH (08:27)
[2019-08-16] MEDS: COMBIGAN OPHTH SOLN OPH SCH ×2 (08:28→20:30)
[2019-08-16] MEDS: PERICOLACE PO SCH (08:28)
[2019-08-16] MEDS: XARELTO PO SCH (08:28)
[2019-08-16] MEDS: LASIX PO SCH (08:28)
[2019-08-16] MEDS: COENZYME Q10 PO SCH (08:29)
[2019-08-16] MEDS: CORDARONE PO SCH ×2 (08:29→20:31)
[2019-08-16] MEDS: PLAVIX PO SCH (08:29)
[2019-08-16] MEDS: LANTUS INSULIN SUBQ SCH ×2 (08:30→21:34)
[2019-08-16] MEDS: NEURONTIN PO SCH ×2 (08:33→20:31)
[2019-08-16] MEDS: PERCOCET-10 PO PRN ×2 (08:36→20:31)
[2019-08-16] MEDS: XANAX PO PRN ×2 (08:37→20:30)
[2019-08-16] MEDS: MUCOMYST 20% INH SCH ×2 (09:54→20:08)
[2019-08-16] MEDS: VENOFER 200 MG in NS 100 ML IV SCH (10:23)
[2019-08-16] MEDS: SENOKOT PO SCH (10:23)
--- NOTE | 2019-08-16 11:02 | PROGRESS NOTE ---
DATE: 08/16/2019 SUBJECTIVE: The patient seems to be doing a little bit better today. X-ray still shows right upper lobe pneumonia and left lower lobe pneumonia. As per the daughter, he has he has been having problems swallowing and he has a really bad history of reflux. I will ask for a modified swallow evaluation, and hopefully it is going to be done today. On the other hand, I think he has been having multiple pneumonia which is likely due to aspiration pneumonia. I will ask for an immunoglobulin level just in case of immunoglobulin deficiency. I explained all this to the family and they seem to understand. On the other hand, I discussed with him and the family, for about 15 to 17 minutes, his advanced directive, and does want to be DNR level 1. OBJECTIVE: Vital Signs: Temperature 97.6 degrees, pulse 65, respiratory rate 14, blood pressure 133/71, oxygen saturation 97% on 2 liters of nasal cannula. HEENT: Head normocephalic. No trauma. PERRLA. Neck: Supple. No JVD. No masses. Central trachea. Chest: Decreased breath sounds at the bases with some crackles at the bases, maybe some rhonchi. Cardiovascular: RRR. Abdomen: Soft. Some tenderness to palpation at the level of the lower abdomen. Positive bowel sounds. Extremities: No edema, no clubbing, no cyanosis. Neurological: The patient is awake and alert. He is oriented x3. He does have generalized weakness. LABORATORY: WBC 7.4, hemoglobin 10.5, hematocrit 36.2, platelets 262,000. Sodium 135, potassium 4.9, chloride 92, bicarbonate 30, BUN 26, creatinine 1.7, glucose 139, calcium 8.8. ASSESSMENT AND PLAN: 1. Acute hypoxemic respiratory failure. Continue with oxygen supplementation. 2. Multifocal pneumonia, probably hospital-acquired. Continue with cefepime and Zyvox. Today is day number 3. He seems to be progressively getting better. He is still short of breath though. 3. Diabetes continue with same management. 4. History of atrial fibrillation. Continue with amiodarone, metoprolol, and Xarelto for deep vein thrombosis prophylaxis, and it looks like it has been renally dosed. 5. Elevated troponins, probably due to mismatch versus [id number] myocardial infarction. Cardiology on board. I do not think he will have any kind of intervention at this moment. He just had a percutaneous coronary intervention done with left anterior descending stent placed. He is on Plavix. 6. Chronic kidney disease, aware. This seems to be stable. 7. Congestive heart failure, probably a combination of diastolic and systolic. Continue with diuretics. He seems to be stable. 8. History of aortic stenosis, status post transcatheter aortic valve replacement in 2018. 9. History of paroxysmal atrial fibrillation, continue with same management. 10. Microcytic anemia secondary to iron deficiency. He received some Venofer infusion here. 11. Generalized weakness and physical deconditioning. Continue physical therapy and occupational therapy. cc: Ulises Arenas MD
--- NOTE | 2019-08-16 13:38 | Diag Imaging Result Doc PS360 ---
BA SWALLOW W/VIDEO SPEECH THER - 08/16/2019 INDICATION: dysphagia TECHNIQUE: Total fluoroscopy time was 28 seconds. 170 images were obtained. COMPARISON: 05/27/2015 FINDINGS: There is no aspiration or penetration. The patient took thin liquid and pureed solid consistencies successfully. The esophagus demonstrates severe diffuse esophageal spasm however. This causes moderate delay in clearance of the esophagus and significant two and fro peristalsis. IMPRESSION: Diffuse esophageal spasm causing moderate delay in clearance of the esophagus. Electronically signed by Javi Gómez 08/16/2019 1:36 PM
[2019-08-16] MEDS: IMDUR PO SCH (20:30)
[2019-08-16] MEDS: TOPROL XL PO SCH (20:30)
[2019-08-16] MEDS: CRESTOR PO SCH (20:30)
[2019-08-16] MEDS: XALATAN 0.005% OPH SOLN OPH SCH (21:34)
--- NOTE | 2019-08-16 22:28 | PULMONOLOGY PROGRESS NOTE ---
DATE: 08/16/2019 SUBJECTIVE: The patient is awake and alert. He reports he has had cough with some bloody sputum today. He completed a modified barium swallow earlier today. OBJECTIVE: Vital Signs: The patient has been afebrile for the last 24 hours. Blood pressure 146/85, heart rate 85, respiratory rate 16, oxygen saturation 96% on 2 L per nasal cannula. HEENT: Pupils are equal and reactive. Oropharynx is clear. Neck: Supple. Chest: Reveals good air entry bilaterally without wheezing or rhonchi. Cardiac: S1, S2. Abdomen: Soft. Extremities: Without edema. LABORATORIES: Chest x-ray reveals faint right upper lobe infiltrate and left basilar infiltrate. White blood count 7.4, hemoglobin 10.5, platelet count 262,000. Modified barium swallow revealed diffuse esophageal spasm with delayed clearance of the esophagus. Speech Therapy recommended GI evaluation. IMPRESSION: 1. Acute hypoxemic respiratory failure. 2. Pneumonia, possible aspiration. 3. Pulmonary edema. 4. Minor hemoptysis. 5. Esophageal dysfunction. PLAN: 1. Continue bronchodilators. 2. Continue current antibiotic regimen. 3. Balance intake and output. 4. Agree with GI evaluation. cc: Ap Hughes MD
[2019-08-17] MEDS: ZYVOX 600 MG/D5W 600 MG/300 ML IVPB IV SCH ×3 (00:18→23:41)
[2019-08-17] MEDS: MAXIPIME 0.5 GM in NS 50 ML IV SCH ×3 (01:00→23:41)
[2019-08-17] MEDS: DUONEB (A & A) INH SCH ×6 (03:25→23:35)
[2019-08-17 05:04] LABS: ALLEN TEST YES; BE 4.3 mmoll (-3.0-3.0); BLOOD TYPE ARTERIAL; HCO3-(ACT) 28.3 mmoll (20.0-26.0); METHB 0.2 % (0.0-1.5); O2(CT) 13.8 mL/dL (15.0-23.0); O2HB 95.7 % (95.0-99.0); PO2(98.6) 79 mmHg (60-100); SAMPLE BLOOD; SAO2 98.4 % (95.0-100.0); THB 10.2 g/dL (11.5-17.4); pH(98.6) 7.35 (7.35-7.45)
[2019-08-17 05:30] LABS: MODALITY CANNULA; PCO2(98.6) 56 mmHg (35-45)
[2019-08-17] MEDS: SYNTHROID PO SCH (06:10)
[2019-08-17 06:20] LABS: CALCIUM 9.2 mg/dL (8.8-10.2); CREATININE 1.6 mg/dL (0.7-1.2); POTASSIUM 4.8 mmol/L (3.5-5.1)
[2019-08-17] MEDS: HUMALOG SUBQ SCH ×4 (06:41→20:41)
--- NOTE | 2019-08-17 07:30 | Diag Imaging Result Doc PS360 ---
EXAM: CHEST-1 VIEW HISTORY: SOB TECHNIQUE: Single view COMPARISON: 08/16/2019 FINDINGS: Poor inspiratory effort. There are infiltrates in the upper right lung similar to the prior exam. Heart is mildly prominent. Mild central vascular distention. Possible tiny left effusion. IMPRESSION: Stable chest Electronically signed by Miguel Nick 08/17/2019 7:28 AM
--- NOTE | 2019-08-17 09:17 | PROGRESS NOTE ---
DATE: 08/17/2019 SUBJECTIVE: The patient is feeling better. He is feeling stronger. We did a modified swallow evaluation that showed moderate to severe esophageal spasm. He is not having aspiration when he tries to swallow. I will get the Gastroenterology Department to evaluate this patient. His immunoglobulin level is good. OBJECTIVE: Vital Signs: Temperature 98.3 degrees, pulse 72, respiratory rate 20, blood pressure 148/81, oxygen saturation 96 on 2 L of nasal cannula. HEENT: Head normocephalic, no trauma. PERRLA. Neck: Supple. No JVD. No masses. Central trachea. Chest: Decreased breath sounds at the bases with some crackles at the bases, some rhonchi. Cardiovascular: Regular rate and rhythm. Abdomen: Soft, some tenderness to palpation at the level of the lower abdomen. Positive bowel sounds. Extremities: No edema, no clubbing, no cyanosis. Neurological: The patient is awake and alert, he is oriented x3. He does have generalized weakness. LABORATORY DATA: Sodium 135, potassium 4.8, chloride 93, bicarbonate 29, BUN 26, creatinine 1.6, glucose 155, calcium 9.2. ASSESSMENT AND PLAN: 1. Acute hypoxemic respiratory failure. Continue with oxygen supplementation. 2. Multifocal pneumonia, probably hospital-acquired. Continue with the same management. He seems to be progressively getting better. He is still having some shortness of breath though. 3. Diabetes. Continue with same treatment. 4. History of atrial fibrillation. Continue with amiodarone, metoprolol, Xarelto for deep venous thrombosis prophylaxis, renally dosed. 5. Elevated troponin, probably due to mismatch versus non ST elevation myocardial infarction. Cardiology on board. I do not think we need to do any kind of intervention at this moment. He just had a percutaneous coronary intervention done in [facility]. 6. Chronic kidney disease, aware. Seems to be stable. 7. Congestive heart failure, likely a combination of systolic and diastolic. Continue with diuretics. He seems to be stable. 8. History of aortic stenosis, status post transcatheter aortic valve replacement in 2018. 9. Microcytic anemia secondary to iron deficiency. He has been getting some Venofer fair infusion. 10. Generalized weakness and physical deconditioning. Continue physical therapy and occupational therapy. 11. Moderate diffuse esophageal spasm. Probably this is the cause of his multiple pneumonias for the past couple years. As per the patient, he has been treated 4 times for this problem. I will get Gastroenterology Department evaluation to see what they can recommend for this patient. cc: Ulises Arenas MD
[2019-08-17] MEDS: COENZYME Q10 PO SCH (09:22)
[2019-08-17] MEDS: COMBIGAN OPHTH SOLN OPH SCH ×2 (09:22→20:42)
[2019-08-17] MEDS: LASIX PO SCH (09:22)
[2019-08-17] MEDS: NEURONTIN PO SCH ×2 (09:22→20:41)
[2019-08-17] MEDS: PLAVIX PO SCH (09:22)
[2019-08-17] MEDS: SENOKOT PO SCH (09:23)
[2019-08-17] MEDS: CORDARONE PO SCH ×2 (09:23→20:41)
[2019-08-17] MEDS: XARELTO PO SCH (09:23)
[2019-08-17] MEDS: LANTUS INSULIN SUBQ SCH ×2 (09:25→20:42)
[2019-08-17] MEDS: MUCOMYST 20% INH SCH ×2 (09:27→19:48)
[2019-08-17] MEDS: XANAX PO PRN ×2 (09:29→20:48)
[2019-08-17] MEDS: PERCOCET-10 PO PRN ×2 (09:29→20:48)
[2019-08-17] MEDS: VENOFER 200 MG in NS 100 ML IV SCH (09:40)
--- NOTE | 2019-08-17 18:23 | PULMONOLOGY PROGRESS NOTE ---
DATE: 08/17/2019 SUBJECTIVE: The patient is awake, alert and conversant. He had some difficulty with swallowing a [employer] sandwich earlier today. OBJECTIVE: The patient has been afebrile for the last 24 hours. Blood pressure 142/76, heart rate 74, respiratory rate 18, oxygen saturation 96% on 2 L per nasal cannula. HEENT: Pupils are equal and reactive. Oropharynx appears clear. Neck is supple. Chest reveals crackles in the lung bases. Cardiac exam: S1, S2. Abdomen is soft. Extremities are without edema. LABORATORY DATA: Arterial blood gas reveals a pH of 7.35, pCO2 of 76, pO2 of 79. DIAGNOSTIC DATA: Chest x-ray reveals faint infiltrate on the right with probable small effusion on the left. IMPRESSION: An 84-year-old with: 1. Acute hypoxemic respiratory failure. 2. Aspiration pneumonia. 3. Esophageal dysfunction. 4. Pulmonary edema. PLAN: 1. Continue antibiotic regimen. 2. Continue current antibiotics. 3. GI evaluation has been performed. Await recommendations. cc: Ap Hughes MD
[2019-08-17] MEDS: TOPROL XL PO SCH (20:41)
[2019-08-17] MEDS: CRESTOR PO SCH (20:41)
[2019-08-17] MEDS: IMDUR PO SCH (20:41)
[2019-08-17] MEDS: XALATAN 0.005% OPH SOLN OPH SCH (20:42)
[2019-08-18] MEDS: DUONEB (A & A) INH SCH ×6 (03:50→23:40)
[2019-08-18 05:18] LABS: ALLEN TEST YES; BE 4.3 mmoll (-3.0-3.0); BLOOD TYPE ARTERIAL; HCO3-(ACT) 28.3 mmoll (20.0-26.0); PCO2(98.6) 47 mmHg (35-45); PO2(98.6) 140 mmHg (60-100); SAMPLE BLOOD; pH(98.6) 7.41 (7.35-7.45)
[2019-08-18 05:19] LABS: MODALITY CANNULA
[2019-08-18] MEDS: HUMALOG SUBQ SCH ×4 (06:41→21:42)
[2019-08-18] MEDS: SYNTHROID PO SCH (06:41)
[2019-08-18 06:48] LABS: MCH 22.3 PG (27-31); MCHC 29.4 g/dL (33-37); MCV 75.7 FL (81-99); MPV 10.7 FL (7.4-10.4); RBC 4.49 XMIL (4.7-6.1); RDW 20.5 % (11.5-14.5); WBC 7.33 X1000 (4.8-10.8)
[2019-08-18 07:11] LABS: CALCIUM 8.7 mg/dL (8.8-10.2); CREATININE 1.8 mg/dL (0.7-1.2); POTASSIUM 4.7 mmol/L (3.5-5.1)
--- NOTE | 2019-08-18 07:16 | Diag Imaging Result Doc PS360 ---
EXAM: CHEST-1 VIEW 08/18/2019 HISTORY: SOB TECHNIQUE: AP portable at [id number] COMMENT: There is mildly increased interstitial opacity particularly in the right upper lobe. There has been no appreciable change since 08/17/2019. IMPRESSION: Mild pulmonary edema, right upper lobe pneumonia. Electronically signed by Rene Cespedes 08/18/2019 7:14 AM
[2019-08-18] MEDS: PERCOCET-10 PO PRN ×2 (07:40→21:50)
[2019-08-18] MEDS: XANAX PO PRN ×2 (07:41→21:50)
[2019-08-18] MEDS: MUCOMYST 20% INH SCH ×2 (08:05→20:15)
[2019-08-18] MEDS: CORDARONE PO SCH ×2 (08:27→21:41)
[2019-08-18] MEDS: LASIX PO SCH (08:27)
[2019-08-18] MEDS: XARELTO PO SCH (08:27)
[2019-08-18] MEDS: NEURONTIN PO SCH ×2 (08:27→21:41)
[2019-08-18] MEDS: PLAVIX PO SCH (08:27)
[2019-08-18] MEDS: COENZYME Q10 PO SCH (08:27)
[2019-08-18] MEDS: SENOKOT PO SCH (08:27)
[2019-08-18] MEDS: VENOFER 200 MG in NS 100 ML IV SCH (08:28)
--- NOTE | 2019-08-18 10:24 | PROGRESS NOTE ---
DATE: 08/18/2019 SUBJECTIVE: The patient is feeling better. He is feeling stronger. Modified swallow evaluation showed moderate to severe esophageal spasm. Gastroenterology Department evaluated this patient. The plan is to get an esophagogastroduodenoscopy done and possible calcium channel blockers in the treatment. It looks like Gastroenterology Department already talked to Cardiology Department about the treatment. OBJECTIVE: Vital Signs: Temperature 98.3 degrees, pulse 76, respiratory rate 16, blood pressure 155/81, oxygen saturation 94% on 2 L of nasal cannula. HEENT: Head normocephalic. No trauma. PERRLA. Neck: Supple. No JVD. No masses. Central trachea. Chest: Decreased breath sounds at the bases. Some crackles and rhonchi. Cardiovascular: Regular rate and rhythm. Abdomen: Soft. Positive bowel sounds. Extremities: Trace edema. No clubbing, no cyanosis. Neurological: The patient is awake and alert. He is oriented x3. He does have generalized weakness. LABORATORY DATA: WBC 7.3, hemoglobin 10, hematocrit 34, platelet 226,000. Sodium 133, potassium 4.7, chloride 92, bicarbonate 30, BUN 26, creatinine 1.8, glucose 166, calcium 8.7. ASSESSMENT AND PLAN: 1. Acute hypoxemic respiratory failure. Continue oxygen supplementation. Likely this patient will need to go home with oxygen. 2. Multifocal pneumonia, probably hospital-acquired. Continue with same management. He seems to be progressively getting better. 3. Diabetes. Continue with same treatment. 4. History of atrial fibrillation. Continue amiodarone, metoprolol, Xarelto for deep venous thrombosis prophylaxis, renally dose. 5. Elevated troponin, probably due to mismatch versus mild non-ST elevation myocardial infarction. Cardiology on board. I do not think we need to do any kind of intervention at this moment. He just had a percutaneous coronary intervention done in [facility]. 6. Chronic kidney disease, aware. Stable. 7. Congestive heart failure, systolic, likely a combination of systolic and diastolic. Continue with diuretics. He seems to be stable as well. He does have some pulmonary edema. 8. History of aortic stenosis status post trans catheter aortic valve replacement in 2019. 9. Microcytic anemia secondary to iron deficiency. He has been getting some Venofer infusion. 10. Generalized weakness and physical deconditioning. Continue physical therapy and occupational therapy. 11. Moderate diffuse esophageal spasm. Gastroenterology Department has evaluated this patient and he will have an esophagogastroduodenoscopy done during this hospitalization, possibly the esophagus is going to be dilated also. It looks like Gastroenterology department already talked to Cardiology Department about calcium channel blockers for this patient. cc: Ulises Arenas MD
--- NOTE | 2019-08-18 11:21 | GASTROENTEROLOGY CONSULTATION ---
DATE: 08/17/2019 REASON FOR CONSULTATION: Diffuse esophageal spasm with some dysphagia. HISTORY OF PRESENT ILLNESS: An 84-year-old gentleman with a history of CAD. He is having problems with swallowing. He had a modified barium swallow that was done yesterday that shows diffuse esophageal spasm causing moderate delay in the clearance of the esophagus; however, there is no aspiration. PAST MEDICAL HISTORY: 1. CAD. 2. Chronic kidney disease. 3. Congestive heart failure. 4. Hypertension. 5. Hyperlipidemia. 6. Diabetes. 7. Hypothyroidism. 8. Prostate cancer. 9. Aortic valve disease. PAST SURGICAL HISTORY: Prostatectomy, angioplasty, EGD with dilation in the past. SOCIAL HISTORY: Does not smoke or drink. FAMILY HISTORY: Noncontributory. REVIEW OF SYSTEMS: As above. ALLERGIES: None. MEDICATIONS: Reconciled. PHYSICAL EXAMINATION: Vital Signs: Temperature 98.9 degrees, heart rate 84, respirations 22, blood pressure 145/72. General: An 84-year-old gentleman who is in no acute distress. HEENT: No pallor or jaundice. Neck: Supple. Heart: S1, S2. Lungs: Clear. Abdomen: Soft, nontender. Extremities: Lower extremities with 1+ pitting edema. Neurological: No focal deficit. LABORATORY DATA: Unremarkable. IMPRESSION AND PLAN: 1. ANA. The patient had improvement with esophageal dilation in the past, so we will plan on doing that Monday again. 2. Coronary artery disease. 3. Atrial fibrillation. 4. Chronic kidney disease. 5. Congestive heart failure. 6. Gastroesophageal reflux disease. 7. Diabetes. 8. Questionable pneumonia. We will schedule for EGD Monday. cc: Zacarias Jenkins MD
[2019-08-18] MEDS: LANTUS INSULIN SUBQ SCH ×2 (12:16→21:42)
[2019-08-18] MEDS: COMBIGAN OPHTH SOLN OPH SCH ×2 (12:17→21:40)
[2019-08-18] MEDS: MAXIPIME 0.5 GM in NS 50 ML IV SCH (12:20)
[2019-08-18] MEDS: ZYVOX 600 MG/D5W 600 MG/300 ML IVPB IV SCH (12:20)
[2019-08-18] MEDS ORDERED: SODIUM CHLORIDE 0.9% INJ SCH (20:00)
[2019-08-18] MEDS ORDERED: PROTONIX IV SCH (20:00)
[2019-08-18] MEDS: XALATAN 0.005% OPH SOLN OPH SCH (21:40)
[2019-08-18] MEDS: MYCOSTATIN SUSP PO SCH (21:41)
[2019-08-18] MEDS: TOPROL XL PO SCH (21:41)
[2019-08-18] MEDS: CRESTOR PO SCH (21:41)
[2019-08-18] MEDS: IMDUR PO SCH (21:41)
[2019-08-19] MEDS: MAXIPIME 0.5 GM in NS 50 ML IV SCH (01:03)
[2019-08-19] MEDS: ZYVOX 600 MG/D5W 600 MG/300 ML IVPB IV SCH (01:03)
[2019-08-19] MEDS: DUONEB (A & A) INH SCH ×3 (04:44→12:26)
[2019-08-19 05:25] LABS: ALLEN TEST YES; BE 3.9 mmoll (-3.0-3.0); BLOOD TYPE ARTERIAL; HCO3-(ACT) 27.9 mmoll (20.0-26.0); METHB 0.8 % (0.0-1.5); O2(CT) 14.3 mL/dL (15.0-23.0); O2HB 95.4 % (95.0-99.0); PO2(98.6) 85 mmHg (60-100); SAMPLE BLOOD; THB 10.6 g/dL (11.5-17.4); pH(98.6) 7.37 (7.35-7.45)
[2019-08-19 05:31] LABS: MODALITY CANNULA; PCO2(98.6) 52 mmHg (35-45)
[2019-08-19] MEDS: HUMALOG SUBQ SCH ×2 (06:15→12:27)
--- NOTE | 2019-08-19 06:46 | Diag Imaging Result Doc PS360 ---
CHEST-1 VIEW - 08/19/2019 INDICATION: SOB COMPARISON: 08/18/2019 FINDINGS: Stable hazy bilateral infiltrates or edema diffusely. Heart size remains top normal. No pneumothorax or large pleural effusion. IMPRESSION: No change from prior. Electronically signed by Javi Gómez 08/19/2019 6:44 AM
[2019-08-19 07:27] LABS: CALCIUM 9.1 mg/dL (8.8-10.2); CREATININE 1.7 mg/dL (0.7-1.2); POTASSIUM 4.3 mmol/L (3.5-5.1)
[2019-08-19] MEDS: MUCOMYST 20% INH SCH (07:55)
[2019-08-19] MEDS: XANAX PO PRN (09:18)
[2019-08-19] MEDS: PERCOCET-10 PO PRN (09:18)
[2019-08-19] MEDS: NEURONTIN PO SCH (09:19)
[2019-08-19] MEDS: MYCOSTATIN SUSP PO SCH ×2 (09:20→13:53)
[2019-08-19] MEDS: SENOKOT PO SCH (09:20)
[2019-08-19] MEDS: CORDARONE PO SCH (09:20)
[2019-08-19] MEDS: SYNTHROID PO SCH (09:21)
[2019-08-19] MEDS: LASIX PO SCH (09:21)
[2019-08-19] MEDS: COENZYME Q10 PO SCH (09:21)
[2019-08-19] MEDS: LANTUS INSULIN SUBQ SCH (09:23)
[2019-08-19] MEDS: COMBIGAN OPHTH SOLN OPH SCH (09:26)
[2019-08-19] MEDS ORDERED: PROTONIX IV SCH (09:30)
[2019-08-19] MEDS: PLAVIX PO SCH (09:34)
[2019-08-19] MEDS: XARELTO PO SCH (09:34)
--- NOTE | 2019-08-19 10:31 | GASTROENTEROLOGY PROGRESS NOTE ---
DATE: 08/19/2019 SUBJECTIVE: The patient is resting in bed. His is at the bedside. The patient complains of trouble swallowing. He had recent coronary stents placed last Monday. He has been on Plavix as well as Xarelto for coronary artery disease and atrial fibrillation. He has been having spontaneous epistaxis with oxygen nasal cannula. We have canceled the EGD today as patient continues to be on Plavix and Xarelto. PHYSICAL EXAMINATION: Vital Signs: Temperature 98.6 degrees, pulse rate of 70, respiratory rate of 15, blood pressure 151/79, saturating 100% on nasal cannula. Body weight of 187 pounds 4.8 ounces. BMI of 25.4 kg/m2. General Appearance: He is moderately built, moderately nourished, sitting in bed, in no acute distress. HEENT: Positive pallor. No icterus. Nasal cannula in place. Pupils equal, reactive to light. Neck: Supple. Abdomen: Soft, nontender. No guarding or rebound. Extremities: No cyanosis, clubbing. Neurologic: He is alert, awake, oriented x3. LABS: Hemoglobin and hematocrit are 10 and 34, white count of 7.3, platelet count of 226,000. ABG showing pH of 7.37, pCO2 of 52, PO2 of 85. This is on nasal cannula at 20% FiO2. Sodium 137, potassium 4.2, chloride of 95, bicarb 27, anion gap 15, BUN of 23, creatinine 1.7, glucose of 132, calcium is 9.1. Iron saturation of 8%, ferritin of 51, iron level of 22. IgM was low at 37. Liver enzymes are normal on admission on 08/12/2019. AST of 19, ALT 17, alkaline phosphatase 65, total bilirubin is 0.18, total protein 6.2, albumin 3.7. His blood cultures were negative. The patient's flu screen was negative for A and B. Chest x-ray was done on 08/19/2019. It showed no change from prior. Stable hazy bilateral infiltrates or edema diffusely. Heart size remains top normal. No pneumothorax or large pleural effusion. IMPRESSION AND PLAN: 1. Diffuse esophageal spasm. 2. Coronary artery disease. 3. History of coronary stents placed more than a week ago at [facility], being followed by cardiology and on Plavix. 4. Atrial fibrillation. He is on Xarelto. 5. Chronic kidney disease. 6. Congestive heart failure. 7. Pulmonary edema. 8. Gastroesophageal reflux disease. 9. Diabetes. 10. Question of pneumonia. 11. Anemia. RECOMMENDATIONS: We will start patient on Protonix twice daily. We have discussed the case with the patient's family and the patient and the hospitalist. We will cancel the EGD for today. The patient is on Plavix and Xarelto. Dr. Callejas is seeing the patient. He cannot come off his blood thinners as he had recent stents placed a few days ago. He will see us in the clinic within 3 months of discharge. At that time, we will discuss the possibility of EGD with possible dilation. In the interim, we will continue patient on Protonix twice daily for now. He will continue on GI soft diet and continue to follow gastroesophageal reflux life changes. Avoid excessive tea, coffee, soda, tomatoes, onions, spicy foods. He will avoid any other NSAIDs as the risk of bleeding is high and he is already having spontaneous epistaxis. He is on bowel regimen with sennosides which he will take every day. He will continue on antibiotics, linezolid, for pneumonia. He is on nystatin swish and swallow 5 mL 4 times a day, started yesterday per the primary care team. He is on insulin glargine and sliding scale for diabetes control. The above plans were discussed with the patient and the family at bedside, and Dr. Leon as well. All questions were answered. Please call us with any further questions. Patient will follow up in the clinic within 3 months of discharge. We will sign off at this time. cc: MD Mauro Yang MD
[2019-08-19 11:51] VITALS: BP 136/68
--- NOTE | 2019-08-19 20:28 | DISCHARGE SUMMARY ---
ADMISSION DATE: 08/12/2019 DISCHARGE DATE: 08/19/2019 DISCHARGE DIAGNOSES: 1. Acute hypoxemic respiratory failure. 2. Multifocal pneumonia, probably hospital acquired. 3. Diabetes. 4. History of atrial fibrillation. 5. Elevated troponin, probably due to mismatch versus mild non-ST elevation myocardial infarction. He is status post percutaneous coronary intervention done in [facility]. 6. Chronic kidney disease. 7. Chronic heart failure, likely a combination of systolic and diastolic. 8. History of aortic stenosis status post transcatheter aortic valve replacement in 2019. 9. Microcytic anemia secondary to iron deficiency. 10. Generalized weakness and physical deconditioning. 11. Moderate diffuse esophageal spasm with reflux. IMPRESSION: 1. Critically low lung volumes, indeterminate bilateral infiltrates or pulmonary edema. 2. Chest x-ray dated 08/13/2019. Impression: Mixed areas of improvement and worsening. 3. Chest CT scan dated 08/13/2019. Impression: Patchy pneumonia versus pulmonary edema and bilateral pleural effusions. 4. Chest x-ray dated 08/14/2019. Impression: Improved pleural effusion, right upper lobe pneumonia. 5. Chest x-ray dated 08/16/2019. Impression: No change from prior. 6. Chest x-ray dated 08/17/2019. Impression: Stable chest. 7. Chest x-ray dated 08/19/2019: No change from prior. CONSULTS: 1. Pulmonary Department, Dr. Kim. 2. Cardiology Department, Dr. Callejas. 3. Gastroenterology Department, Dr. Jenkins. HOSPITAL COURSE: An 84-year-old male with a past medical history of coronary artery disease status post FL. He just had a PCI done at [facility] on 08/09/2019. Also, he was recently treated for pneumonia, and he has a history of recurrent pneumonia, atrial fibrillation, which is a new diagnosis, severe GERD, CKD stage 3, CHF, hypertension, hyperlipidemia, diabetes, hypothyroidism, prostate cancer, and aortic valve disease status post VAVR. Apparently on Monday before 08/12/2019, he went to see his primary care provider and he was diagnosed with pneumonia, CHF, and he was sent to [facility] with a diagnosis of non- STEMI. He underwent stent placement on this last Monday. Apparently, he placed multiple stents and they did other 2 angioplasties. He was released from [facility] the day before admission and he was admitted here on 08/12/2019. He got home he had a low oxygen saturation down to 79 and then apparently 73. They called his primary care provider who urged him to go back to [facility]. However, he did not wish to go that route, so he was brought to [facility] where he had an oxygen saturation of 92 on room air. He was placed on oxygen. He complained of one episode of left-sided chest pain and that was relieved with nitroglycerin. He has not had a recurrence. He does he does have a positive troponin of 103. ProBNP 3025. He was given IV Lasix in the emergency department. Chest x-ray showed poor inspiration and indeterminate bilateral infiltrates or pulmonary edema. He does have some 1+ pitting edema to his lower extremities. He was admitted to the PVC unit. He was seen by Cardiology Department. He was placed on antibiotics because of pneumonia. We put him back on his home medication including Plavix and Xarelto. Cardiology Department, recommended not to use aspirin for the risks of bleeding. Pulmonary Department also evaluated this patient. He qualified for oxygen supplementation to go home with. We noticed that he has been having a lot of reflux and multiple pneumonias for the past couple years. So, we did a modified swallow evaluation that showed esophageal spasm. The Gastroenterology Department was consulted and we tried to do an upper endoscopy, but because this patient has been on anticoagulation and Plavix, they held these for the future. I talked to the family about this. Gastroenterology Department also talked to them about this. I talked to them, the patient and the family, and they will follow up with his patient services coordinator and they will ask the Cardiology to see when he can get the procedure done. He will be discharged with PPIs as well. DISCHARGE MEDICATIONS: Albuterol 10 3 mL inhaler 2 every 2 hours as needed, Xanax 0.5 mg in the morning and 1 mg at night, amiodarone 200 mg p.o. b.i.d., Combigan ophthalmic solution 1 drop ophthalmic via b.i.d., vitamin D3 2000 units p.o. daily, Plavix 75 mg p.o. daily, cyanocobalamin 1000 mcg subcu as directed every Monday, Lasix 20 mg p.o. b.i.d., gabapentin 300 mg p.o. b.i.d., glipizide ER 5 mg p.o. b.i.d., Lantus 15 units at night and 25 during the day, insulin lispro as needed per sliding scale, isosorbide mononitrate ER 90 mg p.o. at bedtime, Ketoralac 0.4% ophthalmic solution 1 drop as needed, latanoprost 1 drop ophthalmic at bedtime levofloxacin 1 tablet p.o. daily 500 mg x5 days, levothyroxine 100 mcg p.o. at bedtime, Toprol-XL 100 mg p.o. daily, nitroglycerin lingual spray 1 spray sublingual q.5 minutes as needed, nystatin 4 times a day 5 mL swish to keep in the mouth as much as he can and swallow, Percocet 10 one tablet p.o. b.i.d. as needed, Pantoprazole 40 mg p.o. b.i.d., potassium 99 mg p.o. q.a.m., pramipexole 0.125 mg p.o. at bedtime, Primidone 50 mg p.o. daily, Xarelto 15 mg p.o. daily, Crestor 10 mg p.o. at bedtime, Senokot 2 tablets p.o. daily as needed, Co-enzyme Q10 100 mg p.o. daily and Viibryd 20 mg p.o. q.a.m. FOLLOW-UP: Follow up with Dr. Benito De Souza on 08/26/2019 at 1:15 p.m. Follow up with Dr. Kim on 08/26/2019 at 9 a.m. TIME DISCHARGING THIS PATIENT: 35 minutes. cc: Ulises Arenas MD
== END 2019-08-19 14:06 | disposition home health service (06) | DRG 280 ==
LOC: ED 17:53 → 2N 22:19 → SUATTDRO 22:19
PROVIDERS: ATTEND Internal Medicine